=== PATIENT | female | born 1960 | race African-American/Black ===

== ENCOUNTER 2019-12-19 08:17 | Outpatient (CLI) | payer MEDICARE, MEDICAID, SELFPAY ==
--- NOTE | ~2019-12-19 | CT_ITS ---
EXAMINATION:CT lung screening DATE: 12/19/2019 08:47 INDICATION: Personal history of tobacco dependence. Current smoker with 33.75 pack year history. TECHNIQUE: Computed tomography (CT) of the chest was performed without intravenous contrast. Automate d exposure control and iterative reconstruction technique were employed. The dose-length product (DLP ) was 50.76 mGy-cm. COMPARISON: None. FINDINGS: There is mild atelectasis bilaterally. There is mild emphysema. Calcified bilateral pulmona ry nodules are consistent with old granulomatous disease. No pleural effusion. The heart size is norm al. No pericardial effusion. There is mild thoracic spondylosis. IMPRESSION: 1. Lung-RADS category 1: Negative. Continue annual screening with noncontrast low-dose chest CT in 12 months. Reviewed, dictated and finalized at location A. IMPRESSION: 1. Lung-RADS category 1: Negative. Continue annual screening with noncontrast l ow-dose chest CT in 12 months.
== END 2019-12-19 08:18 | disposition home or self-care (01) ==
PROVIDERS: Referring Provider Nurse Practitioner Gerontology
DX: R10.2 Pelvic and perineal pain (principal); Z87.891 Personal history of nicotine dependence
CPT/HCPCS: G0297

== ENCOUNTER 2020-05-10 09:26 | Outpatient (CLI) | payer MEDICARE, MEDICAID, SELFPAY | END 2020-05-10 09:27 | disposition home or self-care (01) | LOC: ANHAUDIO 09:28 | DX: H90.3 Sensorineural hearing loss, bilateral (principal) | CPT/HCPCS: 92557; 92567 ==

== ENCOUNTER 2020-05-20 16:34 | Emergency (ER) | payer OTHER, MEDICARE, MEDICAID, SELFPAY ==
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
[2020-05-20 16:34] VITALS: BP 167/74; PULSE 93; RESP 14; TEMP 36.9; O2SAT 99
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
[2020-05-20] MEDS: ACETAMINOPHEN 500 MG TABLET 1000 MG PO (17:05)
[2020-05-20 17:34] VITALS: BP 155/70; PULSE 70; RESP 14; O2SAT 99
== END 2020-05-20 17:35 | disposition home or self-care (01) ==
PROVIDERS: Emergency Provider Emergency Medicine
DX: S09.90XA Unspecified injury of head, initial encounter (principal); E11.9 Type 2 diabetes mellitus without complications; E11.40 Type 2 diabetes mellitus with diabetic neuropathy, unspecified; V43.52XA Car driver injured in collision with other type car in traffic accident, initial encounter
CPT/HCPCS: 70450; 99284; A9270

== ENCOUNTER 2020-05-24 11:48 | Outpatient (CLI) | payer OTHER, MEDICARE, MEDICAID, SELFPAY ==
--- NOTE | ~2020-05-24 | XR_ITS ---
XR shoulder LT min 2V 05/24/2020 12:12 Indication: Left shoulder pain Procedure: 5 views left shoulder Comparison: 03/13/2018 Findings: No fracture, subluxation or dislocation. No soft tissue abnormality. There is anatomic alig nment of the left shoulder. Visualized lung parenchyma is unremarkable. Impression: 1: No significant bone or joint abnormality. Reviewed, dictated and finalized at location B. Impression: 1: No significant bone or joint abnormality.
== END 2020-05-24 11:49 | disposition home or self-care (01) ==
PROVIDERS: Visit Provider Family Medicine
DX: M25.512 Pain in left shoulder (principal)
CPT/HCPCS: 73030

== ENCOUNTER 2020-07-20 14:30 | Outpatient (RCR) | payer OTHER, MEDICARE, MEDICAID, SELFPAY ==
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
--- NOTE | 2020-07-03 11:04 | PCPTNOTE ---
Patient called & cancelled scheduled appointment this date due to having a job interview around the time of her appointment.
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
== END 2020-07-24 09:07 | disposition home or self-care (01) ==
LOC: ANHPT 14:30
PROVIDERS: PCP Family Medicine; Visit Provider Family Medicine
DX: M25.512 Pain in left shoulder (principal)
CPT/HCPCS: 97014; 97110; 97140; 97162; G0283

== ENCOUNTER 2020-10-02 09:53 | Outpatient (RCR) | payer MEDICAID, SELFPAY | END 2020-10-02 23:59 | disposition home or self-care (01) | LOC: ANHAUDIO 09:53 | PROVIDERS: PCP Family Medicine; Visit Provider Family Medicine | DX: Z46.1 Encounter for fitting and adjustment of hearing aid (principal) | CPT/HCPCS: 99199 ==

== ENCOUNTER 2021-02-07 10:57 | Outpatient (CLI) | payer MEDICARE, MEDICAID, SELFPAY ==
--- NOTE | ~2021-02-07 | CT_ITS ---
EXAMINATION:CT lung screening DATE: 02/07/2021 11:21 INDICATION: Personal history of tobacco dependence. Current smoker with 34 pack year history. TECHNIQUE: Computed tomography (CT) of the chest was performed without intravenous contrast. Automate d exposure control and iterative reconstruction technique were employed. The dose-length product (DLP ) was 65.37 mGy-cm. COMPARISON: Chest CT 12/19/2019 FINDINGS: There is mild emphysema. There is mild dependent atelectasis bilaterally. Calcified pulmona ry nodules are consistent with old granulomatous disease. No pleural effusion. The heart size is norm al. No pericardial effusion. There is a 2.7 cm mass in left adrenal gland measuring low-attenuation w ithout change, consistent with an adenoma. There is mild thoracic spondylosis. IMPRESSION: 1. Lung-RADS category 1: Negative. Continue annual screening with noncontrast low-dose chest CT in 12 months. Reviewed, dictated and finalized at location A. FIGHTER TYPE ONE IMPRESSION: 1. Lung-RADS category 1: Negative. Continue annual screening with noncontrast l ow-dose chest CT in 12 months.
== END 2021-02-07 10:58 | disposition home or self-care (01) ==
PROVIDERS: PCP Family Medicine; Visit Provider Nurse Practitioner Gerontology
DX: Z12.2 Encounter for screening for malignant neoplasm of respiratory organs (principal); F17.210 Nicotine dependence, cigarettes, uncomplicated
CPT/HCPCS: 71271

== ENCOUNTER 2021-03-09 08:41 | Outpatient (CLI) | payer MEDICARE, MEDICAID, SELFPAY ==
[2021-03-09 09:39] LABS: Hemoglobin A1C 6.1 % (<5.7)
[2021-03-09 09:44] LABS: Alanine Aminotransferase 40 U/L (4-35); Albumin Level 4.7 g/dL (3.5-5.1); Alkaline Phosphatase 97 U/L (38-126); Anion Gap 9 mmol/L (8-16); Aspartate Amino Transferase 35 U/L (14-36); Bilirubin,Total 0.3 mg/dL (0.2-1.3); Blood Urea Nitrogen 21 mg/dL (7-17); Calcium 10.3 mg/dL (8.4-10.2); Carbon Dioxide 28 mmol/L (22-30); Chloride 103 mmol/L (98-107); Cholesterol 182 mg/dL (0-200); Estimated Glomerular Filt Rate > 60; Glucose 121 mg/dL (65-110); HDL Direct 66 mg/dL; Potassium 4.1 mmol/L (3.4-5.0); Sodium 140 mmol/L (137-145); Triglycerides 59 mg/dL (<150)
[2021-03-09 09:55] LABS: LDL Cholesterol Direct 94 mg/dL
[2021-03-09 11:45] LABS: Microalbumin Urine Random 16.4 mg/L (0-16.7)
[2021-03-09 11:53] LABS: Creatinine Urine 162.5 mg/dL; MALB Creatinine Ratio 10.1 mg/g (0-30)
[2021-03-13 23:24] LABS: Vitamin D 1,25 (OH)2 Total 29 pg/mL (18-72); Vitamin D2 1,25 (OH)2 <8 pg/mL; Vitamin D3 1,25 (OH)2 29 pg/mL
== END 2021-03-09 08:42 | disposition home or self-care (01) ==
PROVIDERS: PCP Emergency Medicine; Visit Provider Emergency Medicine
DX: E55.9 Vitamin D deficiency, unspecified (principal); E11.42 Type 2 diabetes mellitus with diabetic polyneuropathy; I10 Essential (primary) hypertension; Z13.220 Encounter for screening for lipoid disorders
CPT/HCPCS: 36415; 80053; 80061; 82043; 82652; 83036

== ENCOUNTER 2021-05-20 08:09 | Outpatient (CLI) | payer MEDICARE, MEDICAID, SELFPAY ==
--- NOTE | ~2021-05-20 | US_ITS ---
EXAMINATION: US art doppler w press LE BI DATE: 05/20/2021 09:31 INDICATION: Atherosclerosis of the [place] arteries of the extremities. Claudication. TECHNIQUE: Segmental pressures and plethysmographic and Doppler waveforms of the brachial and lower e xtremity arteries were obtained. COMPARISON: None. FINDINGS: Right and left brachial artery pressures of 145 mm Hg and 142 mm Hg, respectively, are 14 (normal dif ference <= 30 mmHg). The right and left high-thigh pressure indices are 1.07 and 1.08, respectively ( normal > 1.2). The right ankle-brachial index (JOYCE) is 1.06 (normal >= 0.9-1). The right great toe-brachial index (T BI) is 0.57 (normal >= 0.6-0.8). The right lower extremity segmental pressure gradients are normal (n ormal gradients <= 20-30 mmHg between adjacent levels on the same leg or the same levels on the two l egs). Arterial waveforms are biphasic with brisk systolic upstrokes throughout the arteries of the ri ght lower limb. The left JOYCE is 1.08. The left TBI is unable to be assessed due to no discernible dopplerable pulse a t the left great toe. The left lower extremity segmental pressure gradients are normal. Arterial wave forms are biphasic with brisk systolic upstrokes throughout the arteries of the left lower limb. IMPRESSION: 1. 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 2. Arterial occlusive disease to the right lower limb with normal right JOYCE and mildly decreased righ t TBI. Reviewed, dictated and finalized at location A. IMPRESSION: 1. Arterial occlusive disease in the left lower limb likely peripheral below th e level of the left ankle with normal left JOYCE but no dopplerable pulse in the left great toe. 2. Arterial occlusive disease to the right lower limb with normal right JOYCE and mildly decreased right TBI.
== END 2021-05-20 08:10 | disposition home or self-care (01) ==
PROVIDERS: PCP Emergency Medicine; Visit Provider Emergency Medicine
DX: I73.9 Peripheral vascular disease, unspecified (principal)
CPT/HCPCS: 93923

== ENCOUNTER 2021-06-18 16:51 | Outpatient (CLI) | payer MEDICARE, MEDICAID, SELFPAY ==
--- NOTE | ~2021-06-18 | US_ITS ---
EXAMINATION: US renal BI DATE: 06/18/2021 18:18 INDICATION: Urinary tract infection TECHNIQUE: Multiple grayscale and Doppler ultrasound images of the kidneys were obtained. COMPARISON: None. FINDINGS: The right kidney measures 8.5 x 4.4 x 3.7 cm. The left kidney measures 9.4 x 4.3 x 3.7 cm. The kidneys demonstrate normal parenchymal echogenicity. There is no hydronephrosis. The bladder is n ormal. IMPRESSION: 1. Normal kidneys without hydronephrosis. Reviewed, dictated and finalized at location F.
== END 2021-06-18 16:52 | disposition home or self-care (01) ==
PROVIDERS: PCP Emergency Medicine
DX: N39.0 Urinary tract infection, site not specified (principal)
CPT/HCPCS: 76775

== ENCOUNTER 2021-08-02 12:13 | Outpatient (CLI) | payer MEDICARE, MEDICAID, SELFPAY ==
--- NOTE | 2021-08-05 11:30 | WPDSIXMINUTE ---
Six Minute Walk Procedure Procedure Performed Pulmonary Stress Test (6 min walk) Six Minute Walk Six Minute Walk: This is a 6 minute walk test. The test was performed and interpreted in accordance with the 2014 ERS/ATS task force guidelines. Findings: The patient's resting room air oxygen saturation measured by pulse oximetry was 95% and heart rate was 100 bpm. Patient ambulated for 457 meters and oxygen saturation remained 94 to 97%. Heart rate at the end of the study was 113 bpm. The patient did not qualify for supplemental oxygen at rest or with ambulation. There are no prior studies for comparison.
--- NOTE | 2021-08-05 11:31 | WPDPFTINT ---
PFT Procedure Performed PFT Procedure Performed Spirometry with Pre/Post Bronchodilator Plethysmography (Lung Vol) Diffusing Cap (DLCO) Flow Vol Loop PFT Interpretation This is a pulmonary function test with pre and post-bronchodilator spirometry, plethysmography and diffusing capacity. The test was performed and results interpreted in accordance with the 2019 and 2005 ATS/ERS Task Force guidelines respectively using the Global Lung Function Initiative-2012 reference equations. Patient demonstrated good effort and cooperation. Reproducibility criteria were met. The quality of the pre bronchodilator spirometry maneuver was Grade C and post bronchodilator spirometry maneuver was Grade C. of note the patient had difficulty following directions and had fair effort Findings: Spirometry: the contour the inspiratory and expiratory flow tracing are normal. The pre bronchodilator FVC is 1.95 L, 76% predicted. The pre bronchodilator FEV1 is 1.92 L, 95% predicted. The pre bronchodilator FEV1: FVC ratio is 99%. The post bronchodilator FVC is 1.78 L, representing a 9% decrease. The post bronchodilator FEV1 is 1.75 L, representing a 9% decrease. The post bronchodilator FEV1: FVC ratio is 98%. Plethysmography: The total lung capacity is 3.87 L, 90% predicted. The functional residual capacity is 2.02 L, 77% predicted. The residual volume is 1.91 L, 104% predicted. Diffusion capacity: The diffusion capacity unadjusted for hemoglobin and carboxyhemoglobin is 11.7, 56% predicted. The diffusing capacity adjusted for alveolar volume is 4.28, 96% predicted. Impression: The spirometry is normal without evidence of an obstructive abnormality. There is no significant improvement after inhaling a single dose of albuterol. The lung volumes are normal. The diffusing capacity unadjusted for hemoglobin and carboxyhemoglobin is moderately decreased and normalizes when adjusted for alveolar volume. There are no prior studies for comparison
== END 2021-08-02 12:14 | disposition home or self-care (01) ==
LOC: ANHPFT 12:15
PROVIDERS: PCP Emergency Medicine; Visit Provider Nurse Practitioner Gerontology
DX: J40 Bronchitis, not specified as acute or chronic (principal)
CPT/HCPCS: 94060; 94618; 94726; 94729

== ENCOUNTER 2021-11-01 07:34 | Outpatient (CLI) | payer MEDICARE, MEDICAID, SELFPAY ==
[2021-11-01 08:28] LABS: Alanine Aminotransferase 29 U/L (6-35); Albumin Level 4.3 g/dL (3.5-5.1); Alkaline Phosphatase 77 U/L (38-126); Anion Gap 9 mmol/L (8-16); Aspartate Amino Transferase 29 U/L (14-36); Bilirubin,Total 0.3 mg/dL (0.2-1.3); Blood Urea Nitrogen 13 mg/dL (7-17); Calcium 9.4 mg/dL (8.4-10.2); Carbon Dioxide 28 mmol/L (22-30); Chloride 103 mmol/L (98-107); Cholesterol 161 mg/dL (0-200); Estimated Glomerular Filt Rate > 60; Glucose 104 mg/dL (65-110); HDL Direct 62 mg/dL; Potassium 3.9 mmol/L (3.4-5.0); Sodium 140 mmol/L (137-145); Triglycerides 55 mg/dL (<150)
[2021-11-01 08:39] LABS: LDL Cholesterol Direct 55 mg/dL
[2021-11-01 09:07] LABS: Hemoglobin A1C 6.2 % (<5.7)
[2021-11-01 09:25] LABS: MALB Creatinine Ratio 6.5 mg/g (0-30); Microalbumin Urine Random 13.9 mg/L (0-16.7)
== END 2021-11-01 07:35 | disposition home or self-care (01) ==
PROVIDERS: PCP Emergency Medicine; Visit Provider Emergency Medicine
DX: E11.9 Type 2 diabetes mellitus without complications (principal); I10 Essential (primary) hypertension
CPT/HCPCS: 36415; 80053; 80061; 82043; 83036

== ENCOUNTER 2021-11-12 12:31 | Outpatient (CLI) | payer MEDICARE, MEDICAID, SELFPAY ==
--- NOTE | ~2021-11-12 | MR_ITS ---
EXAMINATION: MR shoulder RT wo con DATE: 11/12/2021 13:47 INDICATION: Right shoulder pain. TECHNIQUE: Magnetic resonance imaging (MRI) of the right shoulder was performed without intravenous c ontrast. Sequences included axial PD-weighted FS FSE, coronal oblique PD-weighted FS FSE and T2-weigh donna FS FSE, and sagittal oblique T2-weighted FS FSE and T1-weighted FSE. COMPARISON: None. FINDINGS: Coracoacromial arch: The acromion undersurface is curved in morphology (type II). The acromioclavicular joint cartilage is normal. There is moderate subacromial/subdeltoid bursitis. Rotator cuff: There is a bursal sided partial-thickness tear of supraspinatus and infraspinatus tendons measuring 8 mm anterior to posterior by 3 mm proximal to distal by 60% tendon thickness. Teres minor tendon is n ormal. Subscapularis tendon is normal. There is no asymmetric fatty atrophy of the rotator cuff muscl e bellies. Biceps tendon and glenoid labrum: Biceps tendon is in bicipital groove. Intra-articular biceps tendon is normal. The glenoid labrum is normal. Fluid: There is no glenohumeral joint effusion. Bones/cartilage: Glenoid cartilage is normal. Humeral head cartilage is normal. IMPRESSION: 1. Bursal sided partial-thickness tear of supraspinatus and infraspinatus tendons. 2. Moderate subacromial/subdeltoid bursitis. Reviewed, dictated and finalized at location A. IMPRESSION: 1. Bursal sided partial-thickness tear of supraspinatus and infraspinatus tendo ns. 2. Moderate subacromial/subdeltoid bursitis.
--- NOTE | ~2021-11-12 | MR_ITS ---
EXAMINATION: MR shoulder LT wo con DATE: 11/12/2021 13:47 INDICATION: Left shoulder pain other specified acquired deformities of left upper arm. TECHNIQUE: Magnetic resonance imaging (MRI) of the left shoulder was performed without intravenous co ntrast. Sequences included axial PD-weighted FS FSE, coronal oblique PD-weighted FS FSE and T2-weight ed FS FSE, and sagittal oblique T2-weighted FS FSE and T1-weighted FSE. COMPARISON: Left shoulder radiographs 05/24/2020 FINDINGS: Coracoacromial arch: The acromion undersurface is curved in morphology (type II). There is mild acromioclavicular joint os teoarthritis. There is moderate subacromial/subdeltoid bursitis. Rotator cuff: There is a full-thickness tear of supraspinatus and anterior infraspinatus tendons measuring 7 mm ant erior to posterior by 10 mm proximal to distal at the bursal side of the tear and 25 mm proximal to d istal at the articular side of the tear. Teres minor tendon is normal. There is mild subscapularis te ndinopathy. There is mild fatty atrophy of infraspinatus muscle belly. Biceps tendon and glenoid labrum: Biceps tendon is in bicipital groove. Intra-articular biceps tendon is normal. The glenoid labrum is normal. Fluid: There is no glenohumeral joint effusion. Bones/cartilage: There is cartilage surface irregularity of glenoid and humeral head. IMPRESSION: 1. Full-thickness rotator cuff tear. 2. Mild glenohumeral joint chondrosis. 3. Moderate subacromial/subdeltoid bursitis. 4. Mild acromioclavicular joint osteoarthritis. Reviewed, dictated and finalized at location A.
== END 2021-11-12 12:32 | disposition home or self-care (01) ==
PROVIDERS: PCP Emergency Medicine; Visit Provider Emergency Medicine
DX: M21.821 Other specified acquired deformities of right upper arm (principal); M21.822 Other specified acquired deformities of left upper arm; M75.51 Bursitis of right shoulder; S46.811A Strain of other muscles, fascia and tendons at shoulder and upper arm level, right arm, initial encounter; X58.XXXA Exposure to other specified factors, initial encounter; M75.102 Unspecified rotator cuff tear or rupture of left shoulder, not specified as traumatic; M19.012 Primary osteoarthritis, left shoulder; M75.52 Bursitis of left shoulder
CPT/HCPCS: 73221

== ENCOUNTER 2022-06-02 13:57 | Outpatient (CLI) | payer MEDICARE, MEDICAID, SELFPAY ==
[2022-06-02 14:47] LABS: Alanine Aminotransferase 28 U/L (6-35); Albumin Level 4.7 g/dL (3.5-5.1); Alkaline Phosphatase 113 U/L (38-126); Anion Gap 9 mmol/L (8-16); Aspartate Amino Transferase 26 U/L (14-36); Bilirubin,Total 0.4 mg/dL (0.2-1.3); Blood Urea Nitrogen 13 mg/dL (7-17); Calcium 9.1 mg/dL (8.4-10.2); Carbon Dioxide 26 mmol/L (22-30); Chloride 104 mmol/L (98-107); Cholesterol 176 mg/dL (0-200); Estimated Glomerular Filt Rate > 60; Glucose 117 mg/dL (65-110); HDL Direct 66 mg/dL; Potassium 4.4 mmol/L (3.4-5.0); Sodium 139 mmol/L (137-145); Triglycerides 69 mg/dL (<150)
[2022-06-02 14:59] LABS: LDL Cholesterol Direct 78 mg/dL
[2022-06-02 15:18] LABS: Thyroid Stimulating Hormone 0.882 uIU/mL (0.465-4.680)
[2022-06-02 17:23] LABS: Creatinine Urine 38.1 mg/dL
[2022-06-02 17:24] LABS: Free T4 Free Thyroxine 1.14 ng/mL (0.78-2.19)
[2022-06-02 17:37] LABS: Hemoglobin A1C 6.9 % (<5.7)
[2022-06-02 18:23] LABS: MALB Creatinine Ratio < 15.7 mg/g (0-30); Microalbumin Urine Random < 6.0 mg/L (0-16.7)
[2022-06-06 06:08] LABS: Thyroid Peroxidase Antibodies 88 IU/mL (<9)
== END 2022-06-02 13:58 | disposition home or self-care (01) ==
PROVIDERS: PCP Emergency Medicine; Referring Provider Dermatology; Visit Provider Emergency Medicine
DX: E11.9 Type 2 diabetes mellitus without complications (principal); E78.5 Hyperlipidemia, unspecified; Z13.220 Encounter for screening for lipoid disorders; Z13.29 Encounter for screening for other suspected endocrine disorder
CPT/HCPCS: 36415; 80053; 80061; 82043; 83036; 84439; 84443; 86376

== ENCOUNTER 2022-06-09 08:28 | Outpatient (NON) | payer MEDICARE, MEDICAID, SELFPAY | END 2022-06-09 08:29 | disposition home or self-care (01) | LOC: ANHLAB 06-10 08:29 | PROVIDERS: PCP Emergency Medicine; Visit Provider Internal Medicine Gastroenterology | DX: Z12.11 Encounter for screening for malignant neoplasm of colon (principal) | CPT/HCPCS: 88305 ==

== ENCOUNTER 2022-06-09 11:16 | Day surgery (SDC) | payer MEDICARE, MEDICAID, SELFPAY ==
[2022-05-08 14:45] VITALS: BMI 24.5
[2022-05-28 10:47] VITALS: BMI 23.4
--- NOTE | 2022-05-28 11:00 | PC.NURSE ---
1100; CALLED AND LEFT MESSAGE AT DR ANDRE OFFICE REGARDING PT TAKING CILOSTAZOL.
--- NOTE | 2022-05-29 09:15 | SUR.PREOP ---
LATE NOTE. 0527; FAXED LETTER TO DR LINCOLN OFFICE REGARDING HOLDING CILOSTAZOL 2 DAYS PRIOR TO ENDOSCOPY'S. PER DR ANDRE
--- NOTE | 2022-06-04 08:27 | SUR.PREOP ---
CALLED PT. INSTRUCTED HER TO STOP CILOSTAZOL 2 DAYS PRIOR TO PROCEDURE, PER DR ANDRE. PT VERBALIZED UNDERSTANDING.
[2022-06-09 11:58] LABS: Glucose Point of Care 121 mg/dl (65-105)
--- NOTE | 2022-06-09 11:59 | WPDANESEPPF ---
Anes - Initial Pre Proc Eval Procedure: Operation Date: 06/09/22 13:00 Proposed Procedures p Esophagogastroduodenoscopy - Morris Khan MD s Diagnostic Colonoscopy - Morris Khan MD Date/Time: 06/09/22 11:59 Surgeon: Morris Khan MD Pre Op Diagnosis: Heart Burn, Change in Stool and Bloating Patient Data Age: 61 Gender: F Height: 1.6 m Weight: 58.5 kg Allergies Allergy/AdvReac Type Severity Reaction Status Date / Time Sulfa (Sulfonamide Allergy Intermediate Swelling Verified 06/09/22 11:43 Antibiotics) Home Medications Medication Instructions Recorded Confirmed Type folic acid-vit B6-vit B12 2.2 1 tablet PO QAM 03/05/21 06/09/22 History mg-25 mg-1 mg tablet (Virt-Zoey) mirabegron 50 mg tablet,extended 50 mg PO QAM 03/05/21 06/09/22 History release 24 hr (Myrbetriq) metformin 1,000 mg tablet 1,000 mg PO BID #180 tabs 07/10/21 06/09/22 Rx bupropion HCl 75 mg tablet 75 mg PO DAILY #90 tabs 12/02/21 06/09/22 Rx gabapentin 300 mg capsule 300 mg PO QHS #90 caps 12/02/21 06/09/22 Rx estradiol 0.01% (0.1 mg/gram) See Rx Instructions .Route 04/09/22 06/09/22 Rx vaginal cream .COMPLEX #42.5 grams tramadol 50 mg tablet 50 mg PO Q6H PRN pain #30 tabs 04/09/22 06/09/22 Rx cyclobenzaprine 5 mg tablet See Rx Instructions .Route 04/17/22 06/09/22 Rx .COMPLEX #90 tabs cilostazol 50 mg tablet See Rx Instructions .Route 04/22/22 06/09/22 Rx .COMPLEX #180 tabs losartan 50 mg-hydrochlorothiazide See Rx Instructions .Route 05/20/22 06/09/22 Rx 12.5 mg tablet .COMPLEX #90 tabs Laboratory Tests 06/09/22 11:55 POC Capillary Glucose 121 mg/dl H mg/dl (65-105) Patient hx anesthesia problems: none Family hx anesthesia problems: none Results Review: All pre-operative results and documents have been reviewed as part of the pre-operative evaluation. [facility] Past Medical History Medical History Diabetes mellitus Neuropathy Tubal (~1978) Vitiligo Surgical History Surgical History History of tubal ligation (~1991) Hx of removal of ovary (~1991) Family History Family History Father , 72 Heart problem Recurrent strokes Hypertension Mother , 62 History of kidney removal Lung abnormality Other Asthma Diabetes mellitus Heart disease Neuropathy Social History Social History Social History: Patient drinks caffeine daily. Smoking packs per day: 0.5 Smoking cigarettes per day: 10.0 Years smoked: 30 Smoking pack-years: 15.00 Smoking status: Former smoker Tobacco type: cigarettes Second hand tobacco smoke exposure: Yes Alcohol intake: current Drinks per week: 1 Alcohol use details: Drinks only at social events - about 2 per month Substance use: never Substance use type: does not use Living arrangements: alone Additional living arrangements comments: Patient is single. 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 Informed Consent: The patient's anesthetic plan and its attendant risks and benefits were discus
[2022-06-09] MEDS: LACTATED RINGERS 1,000 ML 150 ML IV CONT (12:04)
[2022-06-09 12:05] VITALS: BP 125/80; PULSE 110; RESP 20; TEMP 36.3; O2SAT 100
--- NOTE | 2022-06-09 12:19 | PM.HPGS ---
History of Present Illness History of Present Illness Consent: Risks, benefits, and alternatives have been discussed and questions answered. Patient agrees to proceed with procedure. Chief complaint: Heart Burn, Change in Stool and Bloating Narrative: Adelaida Dunbar is a 61 year old female with gerd for years on ppi, also bloating. Last colonoscopy 10 years ago. Review of Systems Constitutional: Constitutional: Denies headache(s) and Denies weakness Eyes: Eyes: Denies blurry vision ENT: Reports Normal hearing present, Denies headache(s) and Denies neck pain Cardiovascular: Cardiovascular: Denies chest pain and Denies dyspnea Respiratory: Respiratory: Denies dyspnea Gastrointestinal: Gastrointestinal: Reports no additional gastrointestinal complaints Genitourinary: Genitourinary: Denies dysuria Musculoskeletal: Musculoskeletal: Denies neck pain Integumentary/Breasts: Skin/Breast: Denies dry skin Neurologic: Reports Normal hearing present, Denies headache(s) and Denies weakness Psychiatric: Psychiatric: Denies anxiety Endocrine: Endocrine: Denies change in body appearance Hematologic/Lymphatic: Hematologic/Lymphatic: Denies easy bleeding Allergic/Immunologic: Allergic/Immunologic: Denies urticaria PMFSH Past Medical History Medical History (Updated 06/09/22 @ 12:20 by Morris Khan MD) Diabetes mellitus GERD (gastroesophageal reflux disease) Neuropathy Tubal (~1978) Vitiligo Surgical History Surgical History History of tubal ligation (~1991) Hx of removal of ovary (~1991) Family History Family History Father , 72 Heart problem Recurrent strokes Hypertension Mother , 62 History of kidney removal Lung abnormality Other Asthma Diabetes mellitus Heart disease Neuropathy Social History Social History Social History: Patient drinks caffeine daily. Smoking packs per day: 0.5 Smoking cigarettes per day: 10.0 Years smoked: 30 Smoking pack-years: 15.00 Smoking status: Former smoker Tobacco type: cigarettes Second hand tobacco smoke exposure: Yes Alcohol intake: current Drinks per week: 1 Alcohol use details: Drinks only at social events - about 2 per month Substance use: never Substance use type: does not use Living arrangements: alone Additional living arrangements comments: Patient is single. 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[employer] Gender identity (if verbalized by the patient): Female Spiritual care concerns: No Meds Home Medications and Allergies Home Medications Medication Instructions Recorded Confirmed Type folic acid-vit B6-vit B12 2.2 1 tablet PO QAM 03/05/21 06/09/22 History mg-25 mg-1 mg tablet (Virt-Zoey) mirabegron 50 mg tablet,extended 50 mg PO QAM 03/05/21 06/09/22 History release 24 hr (Myrbetriq) metformin 1,000 mg tablet 1,000 mg PO BID #180 tabs 07/10/21 06/09/22 Rx bupropion HCl 75 mg tablet 75 mg PO DAILY #90 tabs 12/02/21 06/09/22 Rx gabapentin 300 mg capsule 300 mg PO QHS #90 caps 12/02/21 06/09/22 Rx estradiol 0.01% (0.1 mg/gram) See Rx Instructions .Route 04/09/22 06/09/22 Rx vaginal cream .COMPLEX #42.5 grams tramadol 50 mg tablet 50 mg PO Q6H PRN pain #30 tabs 04/09/22 06/09/22 Rx cyclobenzaprine 5 mg tablet See Rx Instructions .Route 04/17/22 06/09/22 Rx .COMPLEX #90 tabs cilostazol 50 mg tablet See Rx Instructions .Route 04/22/22 06/09/22 Rx .COMPLEX #180 tabs losartan 50 mg-hydrochlorothiazide See Rx Instructions .Route 05/20/22 06/09/22 Rx 12.5 mg tablet .COMPLEX #90 tabs Allergies Allergy/AdvReac Type Severity Reaction Status Date / Time Sulfa (Sulfonamide Allergy Intermediate Swelling Verified 06/09
[2022-06-09 12:37] VITALS: BP 107/67; PULSE 96; RESP 16; O2SAT 98
--- NOTE | 2022-06-09 12:46 | WPDANESPN ---
Anes - Prog Note Post-Op Date/Time: 06/09/22 12:46 Cardiovascular status: normal Respiratory status: normal Airway patency: baseline Mental status: baseline Post-Op hydration status: normal Vital Signs: Last Vital Signs Temp 36.3 C L 06/09/22 12:05 Pulse 110 H 06/09/22 12:05 Resp 20 06/09/22 12:05 BP 125/80 06/09/22 12:05 Pulse Ox 100 06/09/22 12:05 O2 Del Method Room Air 06/09/22 12:05 Pain Score (VAS): 0/10 06/09/22 11:55 POC Capillary Glucose 121 H Patient Feedback: Patient satisfied with anesthetic care.
[2022-06-09 12:54] VITALS: BP 101/70; PULSE 93; RESP 18; O2SAT 100
[2022-06-09 12:57] VITALS: BP 127/78; PULSE 91; RESP 18; O2SAT 99
== END 2022-06-09 13:28 | disposition home or self-care (01) ==
PROVIDERS: PCP Emergency Medicine; Visit Provider Internal Medicine Gastroenterology
PROC: 0DJ08ZZ Inspection of Upper Intestinal Tract, Via Natural or Artificial Opening Endoscopic (ICD-10-PCS; CPT 43235; principal; 2022-06-09 13:00)
PROC: 0DJD8ZZ Inspection of Lower Intestinal Tract, Via Natural or Artificial Opening Endoscopic (ICD-10-PCS; CPT 45378; 2022-06-09 13:00)
DX: Z12.11 Encounter for screening for malignant neoplasm of colon (principal)
CPT/HCPCS: 45378; 43239

== ENCOUNTER 2022-07-14 12:08 | Outpatient (CLI) | payer MEDICARE, MEDICAID, SELFPAY ==
--- NOTE | 2022-07-14 12:16 | ECG_ITS ---
Measurements Intervals [place] Rate: 107 P: OR: 0 QRS: 43 QRSD: 67 T: 79 QT: 319 QTc: 427 Interpretive Statements SINUS TACHYCARDIA ATRIAL PREMATURE COMPLEXES NONSPECIFIC ST & T-WAVE ABNORMALITY- HIGH LATERAL LEADS BASELINE ARTIFACT- I, III, AVL ABNORMAL ECG NO PREVIOUS ECG AVAILABLE FOR COMPARISON Electronically Signed On 07-14-2022 12:43:32 CDT by Refugio Chowdhury D.O.
== END 2022-07-14 12:09 | disposition home or self-care (01) ==
LOC: ANHCARD 12:11
PROVIDERS: PCP Emergency Medicine; Visit Provider Anesthesiology
DX: I10 Essential (primary) hypertension (principal); Z01.818 Encounter for other preprocedural examination
CPT/HCPCS: 93005

== ENCOUNTER 2022-07-18 01:50 | Day surgery (SDC) | payer MEDICARE, MEDICAID, SELFPAY ==
[2022-07-11 15:31] VITALS: BMI 23.0
--- NOTE | 2022-07-11 15:56 | PC.NURSE ---
Report to the Outpatient Waiting Room, entrance under the green pavilion located off [facility], at time 0600 on date 07/11_. Planned Procedure Time: . Time changes happen often and if your time is changed the preop area will call you the afternoon before. - You and your visitor will be asked to self-screen and do not enter if you have any COVID symptoms. - A mask is optional within the hospital at this time. Patients may have clear liquids (water, carbonated beverages, clear teas, apple juice) until 3 hours prior to surgery with a maximum of 20 ounces. - No food from midnight until time of surgery - Infants may have breast milk until 4 hours before surgery, infant formula 6 hours prior to surgery. - Children will be allowed to drink immediately following surgery. If applicable, please bring a bottle or sippy cup to assist with drinking. Juice, water, soda, and popsicles are readily available. For infants on formula, please bring formula the day of surgery. Pacifiers are allowed. Take the following medications with a SIP of water the morning of surgery: DO NOT STOP ANY OF YOUR OTHER PRESCRIPTION MEDICATIONS PRIOR TO SURGERY ?EXCEPT THE FOLLOWING Medications to discontinue per physician Date to take last dose Please no make-up, nail uzbek, hairspray, perfume, deodorant, or body powder the day of surgery. No jewelry (including any body piercings) or valuables the day of surgery, leave them at home. Please take a shower or bath the night before, or the morning of, surgery with an antibacterial soap. Wear comfortable, loose fitting clothing. Children are encouraged to wear pajamas. - Jewelry must be removed prior to entering the operating room. Rings and piercings that are not removed may be cut off. - The hospital will not accept responsibility for valuables. - Please leave all valuables, including medications, at home the day of surgery. If you are going home after surgery, a licensed electric pile driver operator must drive you home. - NO public transportation without another adult if you receive anesthesia. - We recommend that an adult stay with you for 24 hours following discharge. - We also recommend that you do not drive, make important decision, drink alcoholic beverages, or take any drugs that were not prescribed by your health care provider for at least 24 hours after your discharge time. For Pediatric surgeries, we recommend two adults accompany the child home. Follow any additional instructions given to you from your surgeon. If you or anyone in your household have experienced Covid symptoms in the past week, please notify your surgeon or the nurse liaison at the phone number below for possible testing. Telephone instructions given to and asked if any additional questions and then verbalized understanding. Patient advised to call surgeon office or pre surgery nurse liaison [phone] if any additional questions.
--- NOTE | 2022-07-11 15:57 | PC.NURSE ---
Report to the Outpatient Waiting Room, entrance under the green pavilion located off [facility], at time _0600 on date 07/18/22_. Planned Procedure Time: _0730. Time changes happen often and if your time is changed the preop area will call you the afternoon before. - You and your visitor will be asked to self-screen and do not enter if you have any COVID symptoms. - A mask is optional within the hospital at this time. Patients may have clear liquids (water, carbonated beverages, clear teas, apple juice) until 3 hours prior to surgery with a maximum of 20 ounces. - No food from midnight until time of surgery - Infants may have breast milk until 4 hours before surgery, formula 6 hours prior to surgery. - Children will be allowed to drink immediately following surgery. If applicable, please bring a bottle or sippy cup to assist with drinking. Juice, water, soda, and popsicles are readily available. For infants on formula, please bring formula the day of surgery. Pacifiers are allowed. Take the following medications with a SIP of water the morning of surgery: _n/a___ DO NOT STOP ANY OF YOUR OTHER PRESCRIPTION MEDICATIONS PRIOR TO SURGERY ?EXCEPT THE FOLLOWING Medications to discontinue per physician _vitamins/supplements Date to take last dose__07/15/22__ Please no make-up, nail thai, hairspray, perfume, deodorant, or body powder the day of surgery. No jewelry (including any body piercings) or valuables the day of surgery, leave them at home. Please take a shower or bath the night before, or the morning of, surgery with an antibacterial soap. Wear comfortable, loose fitting clothing. Children are encouraged to wear pajamas. - Jewelry must be removed prior to entering the operating room. Rings and piercings that are not removed may be cut off. - The hospital will not accept responsibility for valuables. - Please leave all valuables, including medications, at home the day of surgery. If you are going home after surgery, a licensed emt driver must drive you home. - NO public transportation without another adult if you receive anesthesia. - We recommend that an adult stay with you for 24 hours following discharge. - We also recommend that you do not drive, make important decision, drink alcoholic beverages, or take any drugs that were not prescribed by your health care provider for at least 24 hours after your discharge time. For Pediatric surgeries, we recommend two adults accompany the child home. Follow any additional instructions given to you from your surgeon. If you or anyone in your household have experienced Covid symptoms in the past week, please notify your surgeon or the nurse liaison at the phone number below for possible testing. Telephone instructions given to Samy Dunbar and asked if any additional questions and then verbalized understanding. Patient advised to call surgeon office or pre surgery nurse liaison [phone] if any additional questions.
--- NOTE | 2022-07-17 16:39 | WPDANESEPPF ---
Anes - Initial Pre Proc Eval Procedure: Operation Date: 07/18/22 07:30 Proposed Procedures p Left Rotator Cuff Repair - Eugene Brower MD Date/Time: 07/17/22 16:39 Surgeon: Eugene Brower MD Pre Op Diagnosis: left rotator cuff tear Patient Data Age: 61 Gender: F Height: 1.6 m Weight: 59 kg Allergies Allergy/AdvReac Type Severity Reaction Status Date / Time Sulfa (Sulfonamide Allergy Intermediate Swelling Verified 07/14/22 13:51 Antibiotics) Home Medications Medication Instructions Recorded Confirmed Type folic acid-vit B6-vit B12 2.2 1 tablet PO QAM 03/05/21 07/11/22 History mg-25 mg-1 mg tablet (Virt-Zoey) gabapentin 300 mg capsule 300 mg PO QHS #90 caps 12/02/21 07/11/22 Rx estradiol 0.01% (0.1 mg/gram) See Rx Instructions .Route 04/09/22 07/11/22 Rx vaginal cream .COMPLEX #42.5 grams tramadol 50 mg tablet 50 mg PO Q6H PRN pain #30 tabs 04/09/22 07/11/22 Rx cyclobenzaprine 5 mg tablet See Rx Instructions .Route 04/17/22 07/11/22 Rx .COMPLEX #90 tabs cilostazol 50 mg tablet See Rx Instructions .Route 04/22/22 07/11/22 Rx .COMPLEX #180 tabs losartan 50 mg-hydrochlorothiazide See Rx Instructions .Route 05/20/22 07/11/22 Rx 12.5 mg tablet .COMPLEX #90 tabs metformin 1,000 mg tablet See Rx Instructions .Route 06/20/22 07/11/22 Rx .COMPLEX #180 tabs bupropion HCl 75 mg tablet See Rx Instructions .Route 06/23/22 07/11/22 Rx .COMPLEX #90 tabs chlorhexidine gluconate 4 % 1 applic topical DAILY #237 mL 07/01/22 07/11/22 Rx topical liquid (Hibiclens) clindamycin phosphate 1 % topical 1 applic topical DAILY #75 mL 07/01/22 07/11/22 Rx gel, once daily (Clindagel) solifenacin 5 mg tablet 5 mg PO DAILY 07/11/22 07/11/22 History Patient hx anesthesia problems: none Family hx anesthesia problems: none Results Review: All pre-operative results and documents have been reviewed as part of the pre-operative evaluation. [facility]LY [facility] Past Medical History Medical History (Updated 07/17/22 @ 17:19 by Josesito Bruce MD) Arthritis COPD (chronic obstructive pulmonary disease) Diabetes Diabetes mellitus Dysphagia Essential (primary) hypertension GERD (gastroesophageal reflux disease) Neuropathy Peripheral vascular disease Tubal (~1978) Vitiligo Vitiligo Surgical History Surgical History History of tubal ligation (~1991) Hx of removal of ovary (~1991) Family History Family History Father , 72 Heart problem Recurrent strokes Hypertension Mother , 62 History of kidney removal Lung abnormality Other Asthma Diabetes mellitus Heart disease Neuropathy Social History Social History Social History: Patient drinks caffeine daily. Smoking packs per day: 0.5 Smoking cigarettes per day: 10.0 Years smoked: 48 Smoking pack-years: 24.00 Smoking status: Former smoker Tobacco type: cigarettes Second hand tobacco smoke exposure: Yes Alcohol intake: never Drinks per week: 1 Alcohol use details: Drinks only at social events - about 2 per month Substance use: never Substance use type: does not use Living arrangements: with family Additional living arrangements comments: Patient is single. 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
--- NOTE | 2022-07-17 17:20 | WPDANESPNB ---
Anes - Peripheral Nerve Block Date/Time: 07/17/22 17:20 I have discussed with the patient/family/POA the placement of a peripheral nerve block for post-operative pain management, including associated risks, benefits, complications, and side effects. Alternative methods of post-operative analgesia were detailed. Questions were solicited and answers provided to the satisfaction of the patient/family/POA. Time-Out: A pre-procedural Time-Out was completed immediately before starting the procedure and confirmed: Patient Identification, Site, Procedure, Patient Position and the Availability of Requisite Equipment. Clinical Indications: Acute post-operative pain management requested by the operative surgeon. Nerve Block Insertion Note Anes-nerve block: supraclavicular left Patient position: supine Skin prep: chlorhexidine Needle: 22 gauge, stimulating, insulated echogenic needle. Needle length: 80 mm Technique: ultrasound (in plane) Injectate: bupivacaine 0.25% with epi 5 mcg/ml (20cc) Observations: tolerated well Complications: none Procedure start time:: 725 Procedure end time:: 730
[2022-07-18] VITALS (9 sets, daily range): BP systolic 117–145; BP diastolic 68–83; PULSE 88–99; RESP 14–18; TEMP 36.2–36.6; O2SAT 92–100
[2022-07-18] MEDS: ACETAMINOPHEN 500 MG TABLET 1000 MG PO (06:19)
[2022-07-18] MEDS: CELECOXIB 200 MG CAPSULE PO (06:19)
[2022-07-18 06:42] LABS: Glucose Point of Care 102 mg/dl (65-105)
[2022-07-18] MEDS: LACTATED RINGERS 1,000 ML 30 ML IV CONT (06:45)
--- NOTE | 2022-07-18 07:21 | WPDHPUPDATE1 ---
History and Physical Update Update Date/Time: 07/18/22 07:21 History and Physical has been reviewed, including an updated exam of the patient. There are NO changes in the patient's condition. Risks, benefits, and alternatives have been discussed and questions answered. Patient agrees to proceed with procedure.
[2022-07-18] MEDS: ceFAZolin 2 GM/D5W 50 ML 2 GM/50 ML BAG IVPB (07:45)
--- NOTE | 2022-07-18 09:55 | W.PM.PROC2 ---
Procedure Note - Detailed Date of Procedure 07/18/22 Pre-op Diagnosis left rotator cuff tear Post-op Diagnosis Same Procedure Performed REPAIR LEFT ROTATOR CUFF Surgeon Eugene Brower MD Anesthesia General Description of Procedure THE PATIENT WAS TAKEN TO THE OPERATING ROOM AND THEN INTUBATED AND PLACED IN THE BEACH CHAIR POSITION. THE LEFT UPPER EXTREMITY WAS PREPPED AND DRAPED IN THE NORMAL STERILE FASHION. AN INCISION WAS MADE IN BETWEEN THE FELIX-LATERAL ACROMION AND THE AC JOINT. THE FASCIA WAS IDENTIFIED. NEXT A MINI OPEN INCISION WAS MADE THROUGH THE DELTOID MUSCLE EXPOSING THE SUBACROMIAL SPACE. A LIMITED ACROMIOPLASTY WAS PREFORMED. THE ROTATOR CUFF WAS IDENTIFIED. THERE WAS A FULL THICKNESS TEAR. IT MEASURED APPROXIMATELY 3 CM X 2 CM. THE BICEPS TENDON WAS RETRACTED AND WAS STABLE AND INTACT. THE GREATER TUBEROSITY WAS DEBRIDED TO BLEEDING BONE. 4 ARTHREX 5.5 SUTURE ANCHORS WERE PLACED IN TO GOOD BONE AND HAD VERY GOOD BITES. CHANELLE-ÁLVARO TYPE REPAIRS WERE DONE TO THE ROTATOR CUFF AND THERE WAS GOOD APPROXIMATION TO THE GREATER TUBEROSITY. THE REPAIR WAS EXCELLENT. THERE WAS NO IMPINGEMENT ON THE REPAIR FROM THE ACROMION WITH RANGE OF MOTION. THE WOUND WAS IRRIGATED WITH COPIOUS AMOUNTS OF ANTIBIOTIC SOLUTION. THE DELTOID MUSCLE WAS REPAIRED WITH #2 FIBER WIRE AND 0 VICRYL SUTURE. THE SUBCUTANEOUS LAYER WAS APPROXIMATED WITH 2-0 VICRYL. THE SKIN WAS APPROXIMATED WITH 3-0 QUIL AND DERMABOND. STERILE DRESSING WAS APPLIED. PATIENT WAS EXTUBATED. Estimated Blood Loss 20 Complications No immediate complications Condition Stable Disposition PACU
[2022-07-18] MEDS: fentaNYL CITRATE INJ (*CRX) 100 MCG/2 ML VIAL 25 MCG IV PUSH (10:22)
[2022-07-18 10:44] LABS: Glucose Point of Care 158 mg/dl (65-105)
[2022-07-18] MEDS: oxyCODONE HCL (*CRX) 5 MG TAB IR PO (11:09)
== END 2022-07-18 12:30 | disposition home or self-care (01) ==
PROVIDERS: PCP Emergency Medicine; Visit Provider Orthopaedic Surgery
PROC: (CPT 23420; principal; 2022-07-18 07:30)
DX: S46.012A Strain of muscle(s) and tendon(s) of the rotator cuff of left shoulder, initial encounter (principal); X50.0XXA Overexertion from strenuous movement or load, initial encounter; G89.18 Other acute postprocedural pain; J44.9 Chronic obstructive pulmonary disease, unspecified; E11.40 Type 2 diabetes mellitus with diabetic neuropathy, unspecified; I10 Essential (primary) hypertension; K21.9 Gastro-esophageal reflux disease without esophagitis; E11.51 Type 2 diabetes mellitus with diabetic peripheral angiopathy without gangrene; Z79.84 Long term (current) use of oral hypoglycemic drugs; Z87.891 Personal history of nicotine dependence
CPT/HCPCS: 23410; 64415; 82948; 93005; A9270; C1713; J0690; J1100; J2250; J2405; J2704; J3010; J7120

== ENCOUNTER 2022-08-15 08:14 | Outpatient (CLI) | payer MEDICARE, MEDICAID, SELFPAY ==
--- NOTE | ~2022-08-15 | CT_ITS ---
CT Scan of the Chest without Contrast: Clinical Indication: Lung cancer screening, personal history of nicotine dependence Technique: Contiguous sections were acquired throughout the chest without intravenous contrast. Dose reduction technique was used on this scan by utilizing automated exposure control and iterative recon struction technique. The dose-length product (DLP) was 102.60 mGy-cm. COMPARISON: 02/07/2021, 12/19/2019 Findings: There is no evidence of any significant mediastinal, hilar or axillary lymphadenopathy. The mediastin al soft tissues appear normal. There is no evidence of pleural or pericardial effusion. Small calcified granulomas are noted. There is linear scarring or atelectasis at the right lower lobe Images through the upper abdomen reveal stable 2.7 cm adrenal adenoma. Impression: Lung RADS 2: Benign appearance. 12 month follow-up screening CT advised. Reviewed, dictated and finalized at [facility]. Impression: Lung RADS 2: Benign appearance. 12 month follow-up screening CT advised.
[2022-08-15 11:54] LABS: Free T4 Free Thyroxine 1.31 ng/mL (0.78-2.19)
[2022-08-19 13:55] LABS: Thyroid Stimulating Immunoglob <89 % baseline (<140); Thyrotropin Receptor Antibody <1.00 IU/L (<=2.00)
[2022-08-19 21:15] LABS: Glutamic acid decarboxylase AA <5 IU/mL (<5)
== END 2022-08-15 08:15 | disposition home or self-care (01) ==
PROVIDERS: PCP Emergency Medicine; Referring Provider Internal Medicine; Visit Provider Nurse Practitioner Gerontology
DX: E11.9 Type 2 diabetes mellitus without complications (principal); Z12.2 Encounter for screening for malignant neoplasm of respiratory organs; Z87.891 Personal history of nicotine dependence; R76.8 Other specified abnormal immunological findings in serum
CPT/HCPCS: 36415; 71271; 83519; 84439; 84443; 84445; 84681; 86341

== ENCOUNTER 2022-09-25 11:04 | Outpatient (CLI) | payer MEDICARE, MEDICAID, SELFPAY ==
--- NOTE | ~2022-09-25 | US_ITS ---
EXAMINATION: US thyroid DATE: 09/25/2022 11:24 INDICATION: Thyroid nodule. TECHNIQUE: Multiple ultrasound images of the thyroid were obtained. COMPARISON: None. FINDINGS: The right thyroid lobe measures 4.6 x 1.3 x 2.3 cm. The left thyroid lobe measures 4.4 x 2.0 x 1.5 c m. In the right thyroid lobe, there is a 10 mm solid, isoechoic, wider than tall nodule with ill-def ined margin and punctate echogenic foci (TI-RADS TR4). IMPRESSION: 1. Small thyroid nodule. Thyroid ultrasound is recommended in one year. Reviewed, dictated and finalized at location L.
== END 2022-09-25 11:05 | disposition home or self-care (01) ==
LOC: ANHIMG 11:05
PROVIDERS: PCP Emergency Medicine; Visit Provider Internal Medicine
DX: E04.1 Nontoxic single thyroid nodule (principal); R76.8 Other specified abnormal immunological findings in serum
CPT/HCPCS: 76536

== ENCOUNTER 2022-10-08 17:15 | Outpatient (RCR) | payer MEDICARE, MEDICAID, SELFPAY ==
--- NOTE | 2022-08-14 09:34 | OPREHPOC ---
Outpatient Therapy Plan of Care This is a Multidisciplinary Plan of Care that may contain components documented by all disciplines (PT, OT, and ST.) PT Problem 1 PT Problem #1 Knowledge Deficit PT Goal 1 Goal Patient will demonstrate independence with home exercise program PT Problem 2 PT Problem #2 Impaired Range of Motion PT Goal 1 Goal 1. Patient will demonstrate passive L shoulder flexion 110 2. Patient will demonstrate passive L shoulder scaption 110 3. Patient will demonstrate passive L shoulder external rotation 30 PT Problem 3 PT Problem #3 Impaired Strength PT Goal 1 Goal 1. Patient will demonstrate L shoulder strength 4+ /5 in all planes as allowed by protocol PT Problem 4 PT Problem #4 Pain PT Goal 1 Goal 1. Patient will report L shoulder pain as 3/10
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
--- NOTE | 2022-09-11 09:30 | PTOPPROG ---
Assessment and note entered by Lori Maurice, PT Evaluation Information Assessment Status Progress Diagnosis L RTC repair Onset July 18, 2022 Subjective Information Patient reports she feels like she is healing well . Patient is now able to progress with AROM and L shoulder strengthening. Patient goal is to strengthen L shoulder and decrease pain Assessment PT Clinical Summary Progress update completed on this date. Patient presents with decreased L shoulder AROM/PROM, decreased L shoulder and scapular muscle strength, postural impairments, and pain rated 5/10 with movement on this date. Impairments in ROM/strength /posture limit patient ability to return to daily activities. Recommending continued skilled PT 2x/ wk for 4 weeks to improve L shoulder mobility/ strength in order to decrease pain and return to PLOF. Plan of Care Interventions Electrical Stimulation,Gait Training,Hot Pack/Cold Pack,Neuro Re-education,Patient/Caregiver Education ,Therapeutic Activities,Therapeutic Exercise Other Interventions CUPPING, TAPING, IASTM PT Services Indicated Yes Treatment Frequency and 2x/wk for 4 weeks Duration These treatments will address the objective and functional deficits as defined above. The patient will be advanced safely and appropriately in order for the patient to progress towards his/her prior level of function. Additional exercises will be introduced and as well as a comprehensive home exercise program upon discharge, if needed, ?to ensure carryover of functional gains achieved in the clinic. This treatment plan has been reviewed and agreement upon by the patient.
--- NOTE | 2022-09-11 09:30 | OPREHPOC ---
Outpatient Therapy Plan of Care This is a Multidisciplinary Plan of Care that may contain components documented by all disciplines (PT, OT, and ST.) PT Problem 1 PT Problem #1 Knowledge Deficit PT Goal 1 Goal Patient will demonstrate independence with home exercise program - partially met goal continues PT Problem 2 PT Problem #2 Impaired Range of Motion PT Goal 1 Goal 1. Patient will demonstrate passive L shoulder flexion 110- met 2. Patient will demonstrate passive L shoulder scpation 110- met 3. Patient will demonstrate passive L shoulder external rotation 30- met UPGRADED GOALS: 1. patient will demonstrate L shoulder active flexion 130 degrees 2. Patient will demonstrate L shoulder IR/ER WNL PT Problem 3 PT Problem #3 Impaired Strength PT Goal 1 Goal 1. Patient will demonstrate L shoulder strength 4+ /5 in all planes- not met PT Problem 4 PT Problem #4 Pain PT Goal 1 Goal 1. Patient will report L shoulder pain as 3/10
--- NOTE | 2022-09-29 08:12 | PCPTNOTE ---
Pt. canceled 09/29/22 appointment but did not state why.
== END 2022-11-12 23:59 | disposition home or self-care (01) ==
LOC: ANHPT 17:15
PROVIDERS: PCP Emergency Medicine; Visit Provider Orthopaedic Surgery
DX: M75.102 Unspecified rotator cuff tear or rupture of left shoulder, not specified as traumatic (principal); Z98.890 Other specified postprocedural states
CPT/HCPCS: 97110; 97140; 97162

== ENCOUNTER 2022-12-27 08:33 | Outpatient (CLI) | payer MEDICARE, MEDICAID, SELFPAY ==
[2022-12-27 10:32] LABS: Alanine Aminotransferase 22 U/L (6-35); Albumin Level 4.8 g/dL (3.5-5.1); Alkaline Phosphatase 94 U/L (38-126); Anion Gap 11 mmol/L (8-16); Aspartate Amino Transferase 22 U/L (14-36); Bilirubin,Total 0.4 mg/dL (0.2-1.3); Blood Urea Nitrogen 14 mg/dL (7-17); Calcium 10.2 mg/dL (8.4-10.2); Carbon Dioxide 27 mmol/L (22-30); Chloride 103 mmol/L (98-107); Cholesterol 126 mg/dL (0-200); Estimated Glomerular Filt Rate 55; Glucose 104 mg/dL (65-110); HDL Direct 65 mg/dL; Potassium 4.1 mmol/L (3.4-5.0); Sodium 141 mmol/L (137-145); Triglycerides 62 mg/dL (<150)
[2022-12-27 10:40] LABS: LDL Cholesterol Direct 47 mg/dL
[2022-12-27 10:52] LABS: Vitamin D 25 Hydroxy 71.9 ng/mL
[2022-12-27 10:52] LABS: Creatinine Urine 22.3 mg/dL
[2022-12-27 10:59] LABS: MALB Creatinine Ratio < 26.9 mg/g (0-30); Microalbumin Urine Random < 6.0 mg/L (0-16.7)
[2022-12-27 11:58] LABS: Hemoglobin A1C 6.8 % (<5.7)
== END 2022-12-27 08:34 | disposition home or self-care (01) ==
LOC: ANHLAB 08:37
PROVIDERS: PCP Emergency Medicine; Visit Provider Emergency Medicine
DX: E11.42 Type 2 diabetes mellitus with diabetic polyneuropathy (principal); E55.9 Vitamin D deficiency, unspecified; E78.5 Hyperlipidemia, unspecified
CPT/HCPCS: 36415; 80053; 80061; 82043; 82306; 83036

== ENCOUNTER 2023-01-30 01:16 | Day surgery (SDC) | payer MEDICARE, MEDICAID, SELFPAY ==
[2023-01-29 12:33] VITALS: BMI 23.0
--- NOTE | 2023-01-29 12:37 | PC.NURSE ---
Report to the Outpatient Waiting Room, entrance under the green pavilion located off [facility], at time ____6am__ on date __01/30/23 . Planned Procedure Time: ___730 . Time changes happen often and if your time is changed the preop area will call you the afternoon before. - You and your visitor will be asked to self-screen and do not enter if you have any COVID symptoms. - A mask is optional within the hospital at this time. Patients may have clear liquids (water, carbonated beverages, clear teas, apple juice) until 3 hours prior to surgery with a maximum of 20 ounces. - No food from midnight until time of surgery. Take the following medications with a SIP of water the morning of surgery: nothing DO NOT STOP ANY OF YOUR OTHER PRESCRIPTION MEDICATIONS PRIOR TO SURGERY ?EXCEPT THE FOLLOWING Medications to discontinue per physician per patient Dr Brower had her stop cilostazol 1 week ago Date to take last dose 01/23/23 Please no make-up, nail zimbabwean, hairspray, perfume, deodorant, or body powder the day of surgery. No jewelry (including any body piercings) or valuables the day of surgery, leave them at home. Please take a shower or bath the night before, or the morning of, surgery with an antibacterial soap. Wear comfortable, loose fitting clothing. Children are encouraged to wear pajamas. - Jewelry must be removed prior to entering the operating room. Rings and piercings that are not removed may be cut off. - The hospital will not accept responsibility for valuables. - Please leave all valuables, including medications, at home the day of surgery. If you are going home after surgery, a licensed pile driver operator barge mounted must drive you home. - NO public transportation without another adult if you receive anesthesia. - We recommend that an adult stay with you for 24 hours following discharge. - We also recommend that you do not drive, make important decision, drink alcoholic beverages, or take any drugs that were not prescribed by your health care provider for at least 24 hours after your discharge time. For Pediatric surgeries, we recommend two adults accompany the child home. Follow any additional instructions given to you from your surgeon. If you or anyone in your household have experienced Covid symptoms in the past week, please notify your surgeon or the nurse liaison at the phone number below for possible testing. Telephone instructions given to patient and asked if any additional questions and then verbalized understanding. Patient advised to call surgeon office or pre surgery nurse liaison [phone] if any additional questions.
[2023-01-30] VITALS (21 sets, daily range): BP systolic 115–149; BP diastolic 70–97; PULSE 82–101; RESP 15–21; TEMP 36.1; O2SAT 90–99
[2023-01-30] MEDS: LACTATED RINGERS 1,000 ML 30 ML IV CONT ×2 (06:32→08:46)
--- NOTE | 2023-01-30 06:34 | WPDANESEPPF ---
Anes - Initial Pre Proc Eval Procedure: Operation Date: 01/30/23 07:30 Proposed Procedures p Right Rotator Cuff Repair - Eugene Brower MD Date/Time: 01/30/23 06:34 Surgeon: Eugene Brower MD Pre Op Diagnosis: right rotator cuff tear Patient Data Age: 62 Gender: F Height: 1.6 m Weight: 59 kg Allergies Allergy/AdvReac Type Severity Reaction Status Date / Time Sulfa (Sulfonamide Allergy Intermediate Swelling Verified 01/30/23 06:11 Antibiotics) Home Medications Medication Instructions Recorded Confirmed Type folic acid-vit B6-vit B12 2.2 1 tablet PO QAM 03/05/21 01/23/23 History mg-25 mg-1 mg tablet (Virt-Zoey) cyclobenzaprine 5 mg tablet See Rx Instructions .Route 07/28/22 01/23/23 Rx .COMPLEX #90 tabs blood sugar diagnostic (OneTouch #100 ea 08/08/22 01/23/23 Rx Ultra Test strips) solifenacin 10 mg tablet 10 mg PO DAILY 08/13/22 01/23/23 History losartan 50 mg-hydrochlorothiazide See Rx Instructions .Route 08/18/22 01/23/23 Rx 12.5 mg tablet .COMPLEX #90 tabs gabapentin 300 mg capsule See Rx Instructions .Route 08/22/22 01/23/23 Rx .COMPLEX #90 caps metformin 1,000 mg tablet See Rx Instructions .Route 09/05/22 01/23/23 Rx .COMPLEX #180 tabs atorvastatin 20 mg tablet (Lipitor) 20 mg PO DAILY #90 tabs 09/18/22 01/29/23 Rx cilostazol 50 mg tablet See Rx Instructions .Route 10/20/22 01/29/23 Rx .COMPLEX #180 tabs blood-glucose meter (OneTouch #1 ea 11/06/22 01/23/23 Rx Ultra2 Meter) bupropion HCl 75 mg tablet See Rx Instructions .Route 12/29/22 01/29/23 Rx .COMPLEX #90 tabs estradiol 0.01% (0.1 mg/gram) See Rx Instructions .Route 12/29/22 01/23/23 Rx vaginal cream .COMPLEX #42.5 grams benzoyl peroxide 5 % topical gel 1 applic topical DAILY #42.5 grams 01/13/23 01/29/23 Rx chlorhexidine gluconate 4 % 1 applic topical ONCE #237 mL 01/13/23 01/29/23 Rx topical liquid (Hibiclens) clindamycin phosphate 1 % topical 1 applic topical DAILY #30 grams 01/13/23 01/23/23 Rx gel Patient hx anesthesia problems: none Family hx anesthesia problems: none Results Review: All pre-operative results and documents have been reviewed as part of the pre-operative evaluation. [facility] Past Medical History Medical History Arthritis COPD (chronic obstructive pulmonary disease) Diabetes Diabetes mellitus Dysphagia Essential (primary) hypertension GERD (gastroesophageal reflux disease) Neuropathy Peripheral vascular disease Rotator cuff arthropathy of left shoulder Tubal (~1978) Vitiligo Vitiligo Surgical History Surgical History History of tubal ligation (~1991) Hx of removal of ovary (~1991) Family History Family History Father , 72 Heart problem Recurrent strokes Hypertension Mother , 62 History of kidney removal Lung abnormality Other Asthma Diabetes mellitus Heart disease Neuropathy Social History Social History Social History: Patient drinks caffeine daily. Smoking packs per day: 0.5 Smoking cigarettes per day: 10.0 Years smoked: 48 Smoking pack-years: 24.00 Smoking status: Former smoker Tobacco type: cigarettes Second hand tobacco smoke exposure: Yes Alcohol intake: never Drinks per week: 1 Alcohol use details: Drinks only at social events - about 2 per month Substance use: never Substance use type: does not use Lack of Transportation: No Lack of Food: Never True Current Housing: I Have Housing Concerned About Future Housing: No Difficulty Paying Gas/Electric Bills: No Difficulty Paying for Meds: YES Currently Unemployed: No Education: Associate Degree Difficulty w/ Childcare or Family Care: No Living arrangements: with family Additional living ar
[2023-01-30] MEDS: CELECOXIB 200 MG CAPSULE PO (06:35)
[2023-01-30] MEDS: ACETAMINOPHEN 500 MG TABLET 1000 MG PO (06:35)
[2023-01-30 06:42] LABS: Glucose Point of Care 130 mg/dl (65-105)
--- NOTE | 2023-01-30 07:08 | WPDHPUPDATE1 ---
History and Physical Update Update Date/Time: 01/30/23 07:08 History and Physical has been reviewed, including an updated exam of the patient. There are NO changes in the patient's condition. Risks, benefits, and alternatives have been discussed and questions answered. Patient agrees to proceed with procedure.
--- NOTE | 2023-01-30 07:27 | WPDANESPNB ---
Anes - Peripheral Nerve Block Date/Time: 01/30/23 07:27 I have discussed with the patient/family/POA the placement of a peripheral nerve block for post-operative pain management, including associated risks, benefits, complications, and side effects. Alternative methods of post-operative analgesia were detailed. Questions were solicited and answers provided to the satisfaction of the patient/family/POA. Time-Out: A pre-procedural Time-Out was completed immediately before starting the procedure and confirmed: Patient Identification, Site, Procedure, Patient Position and the Availability of Requisite Equipment. Clinical Indications: Acute post-operative pain management requested by the operative surgeon. Nerve Block Insertion Note Anes-nerve block: interscalene right Patient position: supine Needle: 22 gauge, stimulating, insulated echogenic needle. Needle length: 50 mm Technique: ultrasound Injectate: bupivacaine 0.5% with epi 5 mcg/ml (30 no epi) and dexamethasone (mg) (8) Observations: tolerated well Complications: none Procedure start time:: 719 Procedure end time:: 724
[2023-01-30] MEDS: ceFAZolin 2 GM/D5W 50 ML 2 GM/50 ML BAG IVPB (07:30)
--- NOTE | 2023-01-30 08:41 | W.PM.PROC2 ---
Procedure Note - Detailed Date of Procedure 01/30/23 Pre-op Diagnosis right rotator cuff tear Post-op Diagnosis Same Procedure Performed REPAIR RIGHT ROTATOR CUFF Surgeon Eugene Brower MD Anesthesia General Description of Procedure THE PATIENT WAS TAKEN TO THE OPERATING ROOM AND THEN INTUBATED AND PLACED IN THE BEACH CHAIR POSITION. THE RIGHT UPPER EXTREMITY WAS PREPPED AND DRAPED IN THE NORMAL STERILE FASHION. AN INCISION WAS MADE IN BETWEEN THE FELIX-LATERAL ACROMION AND THE AC JOINT. THE FASCIA WAS IDENTIFIED. NEXT A MINI OPEN INCISION WAS MADE THROUGH THE DELTOID MUSCLE EXPOSING THE SUBACROMIAL SPACE. A LIMITED ACROMIOPLASTY WAS PREFORMED. THE ROTATOR CUFF WAS IDENTIFIED. THERE WAS A NEAR FULL THICKNESS TEAR. IT MEASURED APPROXIMATELY 1CM X 1CM. THE GREATER TUBEROSITY WAS DEBRIDED TO BLEEDING BONE. 1 ARTHREX 4.75 SUTURE ANCHOR WAS PLACED IN TO GOOD BONE AND HAD VERY GOOD BITES. CHANEL[place] TYPE REPAIRS WERE DONE TO THE ROTATOR CUFF AND THERE WAS GOOD APPROXIMATION TO THE GREATER TUBEROSITY. THE REPAIR WAS EXCELLENT. THERE WAS NO IMPINGEMENT ON THE REPAIR FROM THE ACROMION WITH RANGE OF MOTION. THE WOUND WAS IRRIGATED WITH COPIOUS AMOUNTS OF ANTIBIOTIC SOLUTION. THE DELTOID MUSCLE WAS REPAIRED WITH #2 FIBER WIRE AND 0 VICRYL SUTURE. THE SUBCUTANEOUS LAYER WAS APPROXIMATED WITH 2-0 VICRYL. THE SKIN WAS APPROXIMATED WITH 3-0 QUIL AND DERMABOND. STERILE DRESSING WAS APPLIED. PATIENT WAS EXTUBATED. Estimated Blood Loss 20 Complications No immediate complications Condition Stable Disposition PACU
[2023-01-30 08:55] LABS: Glucose Point of Care 131 mg/dl (65-105)
== END 2023-01-30 13:56 | disposition home or self-care (01) ==
PROVIDERS: PCP Emergency Medicine; Visit Provider Orthopaedic Surgery
PROC: (CPT 23420; principal; 2023-01-30 07:30)
DX: S46.011A Strain of muscle(s) and tendon(s) of the rotator cuff of right shoulder, initial encounter (principal); X58.XXXA Exposure to other specified factors, initial encounter; G89.18 Other acute postprocedural pain; J44.9 Chronic obstructive pulmonary disease, unspecified; I10 Essential (primary) hypertension; K21.9 Gastro-esophageal reflux disease without esophagitis; E11.40 Type 2 diabetes mellitus with diabetic neuropathy, unspecified; E11.51 Type 2 diabetes mellitus with diabetic peripheral angiopathy without gangrene; Z79.84 Long term (current) use of oral hypoglycemic drugs; L80 Vitiligo; Z87.891 Personal history of nicotine dependence
CPT/HCPCS: 23410; 64415; 82948; A9270; C1713; J0690; J1100; J2250; J2405; J2704; J3010; J7120

== ENCOUNTER 2024-06-11 08:13 | Outpatient (CLI) | payer OTHER, MEDICARE, SELFPAY ==
[2024-06-11 09:18] LABS: Alanine Aminotransferase 31 U/L (6-35); Albumin Level 4.6 g/dL (3.5-5.1); Alkaline Phosphatase 83 U/L (38-126); Anion Gap 11 mmol/L (4-12); Aspartate Amino Transferase 28 U/L (14-36); Bilirubin,Total 0.4 mg/dL (0.2-1.3); Blood Urea Nitrogen 16 mg/dL (7-17); Calcium 9.3 mg/dL (8.4-10.2); Carbon Dioxide 26 mmol/L (22-30); Chloride 104 mmol/L (98-107); Cholesterol 105 mg/dL (0-200); Estimated Glomerular Filt Rate 54; Glucose 134 mg/dL (65-110); HDL Direct 55 mg/dL; Potassium 4.1 mmol/L (3.4-5.0); Sodium 141 mmol/L (137-145); Triglycerides 66 mg/dL (<150)
[2024-06-11 09:34] LABS: LDL Cholesterol Direct < 30 mg/dL
[2024-06-11 09:42] LABS: Vitamin D 25 Hydroxy 77.8 ng/mL
== END 2024-06-11 08:14 | disposition home or self-care (01) ==
PROVIDERS: PCP Emergency Medicine; Visit Provider Emergency Medicine
DX: E78.5 Hyperlipidemia, unspecified (principal); E55.9 Vitamin D deficiency, unspecified
CPT/HCPCS: 36415; 80053; 80061; 82306

== ENCOUNTER 2024-07-06 12:34 | Outpatient (CLI) | payer OTHER, MEDICARE, SELFPAY ==
--- OUTSIDE RECORDS SUMMARY | 2024-07-06 12:37 | XMS_ITS | Data Portability ---
[facility] Address [address] [place] [address] Care Team Providers Care Financial Reserve Clerk Name Role Phone CHARU LINCOLN Primary Care Provider Unavailable Eligibility Manager Assessment No assessment recorded. Plan of Treatment Reminders Order Date Submit Date Provider Last Modified By Organization Details Last Modified Time Details Appointments ANY 15 2024 10:15A M Unruly Epps MD Not available Not available Not available Lab None recorded. Referral None recorded. Procedures None recorded. Surgeries None recorded. Imaging None recorded. Medication Orders tamsulosi n 0.4 mg capsule 2024 025 [facility] [id number], [address], 06/24/2024 12:05:56 solifenac in 10 mg tablet 2023 024 [facility] [id number], [address], 08/19/2023 11:42:50 Patient TargetsNo targets recorded. Patient Instructions Encounter Date Encounter Id Patient Instructions Last Modified By Organization Details Last Modified Time 02/11/2023 [id number] frequent urination: care instructions Not available 02/11/2023 15:39:15 02/11/2023 [id number] presbyopia: care instructions msafi Not available 02/11/2023 16:03:10 type 2 diabetes: care instructions msafi Not available 02/11/2023 16:03:10 vitiligo: care instructions msafi Not available 02/11/2023 16:03:10 08/19/2023 [id number] frequent urination: care instructions Not available 08/19/2023 11:42:49 06/24/2024 [id number] frequent urination: care instructions Not available 06/24/2024 12:05:53 Reason for Referral None Reported. Problems Name Problem SNOMED Code Status Onset Date Resolution Date Notes Provider Name and Address Organization Details Recorded Time Candidias is of mouth 23086924 Active 2016 Not Available [facility] 1 05:22:42 Allergic rhinitis 76683110 Active 2016 Not Available [facility] 1 05:22:42 Increased frequency of urination 554375292 Active 2016 Not Available [facility] 1 05:22:42 Tobacco user 817603137 Active 2017 Not Available [facility] 1 05:22:42 Neuropath y 101707223 Active 2017 Not Available [facility] 1 05:22:42 Vitiligo 83192169 Active 2017 Not Available [facility] 1 05:22:42 Hyperkale sofya 83109630 Active 2017 Not Available [facility] 1 05:22:42 Fracture at wrist and/or hand level 489296940 Active 2017 Not Available [facility] 1 05:22:42 Osteoarth ritis of shoulder region 33485605 Active 2018 Not Available [facility] 1 05:22:42 Carpal tunnel syndrome 51280456 Active 2018 Not Available [facility] 1 05:22:42 Pain of wrist region 08515828 Active 2018 Not Available [facility] 1 05:22:42 Diabetic periphera l neuropath y 036061061 Active 2018 Not Available [facility] 1 05:22:42 Fibromyal jose c 613059427 Active 2018 Not Available [facility] 1 05:22:42 Headache 91956775 Active 2019 Not Available [facility] 05:22:42 Chronic obstructi ve pulmonary disease 91836910 Active 2019 Not Available [facility] 05:22:42 Pain in lower limb 49271221 Active 2020 Argelia Harris PA-C Attn: Accounting ,[address] [facility], [place], [address] , [facility] [place] 11:26:39 Diabetes mellitus 32085796 Active Not Available [facility] 05:22:42 Hyperlipi demia 60068071 Active Not Available [facility] 05:22:42 Essential hypertens ion 57220013 Active Not Available [facility] 05:22:42 Pain of shoulder region 66235459 Active Not Available [facility] 05:22:42 Postmenop ausal bleeding 26074353 Active Not Available [facility] 05:22:42 Abnormal uterine bleeding 119201325413 00 Active atrophy on 11/2014 Not Available [facility] 1 05:22:42 Mammograp hy abnormal 359701447 Active Not Available [facility] 05:22:42 Indigesti on 122059339 Active Not Available [facility] 05:22:42 Cystitis 29922001 Active Not Available [facility] 05:22:41 Problem Notes None recorded. Procedures Surgical History Date Name Laterality Status Provider Name and Address Organization Details Recorded Time 06/30/19 21 Bladder Ultrasound completed Unruly Epps MD [address] [place], [address], [place] [facility] 06/29/2020 11:09:54 05/01/19 21 Cerumen removal without microscope completed Elizabeth Cruz [place] 04/30/2020 10:33:14 03/07/19 21 Date of Last Pap Smear completed Ibeth Caro [place] - [facility] 03/14/2020 11:29:10 02/23/19 20 Date of Last Mammogram completed Criss Morris [place] 06/07/2020 14:05:36 12/02/19 15 Endometrial Biopsy completed Hope Lyons MD Attn: Accounting,[address] [facility], [place], [address], [place] 12/01/2014 10:33:49 03/06/18 92 Tubal Ligation completed Griselda Weiner LY- Attn: Accounting,[address] [facility], [place], [address], [place] [facility] 08/04/2014 10:51:39 08/07/18 79 Oophorectomy completed Hope Lyons MD Attn: Accounting,[address] [facility], [place], [address], [place] [facility] 11/16/2014 10:52:09 Imaging Results None recorded. Procedure Notes None recorded. Medical Equipment None Reported. Allergies Allergen ID Allergen Name Allergen Category Reaction Reaction Severity Criticality Documentation Date Start Date Code Code System Note Provider Name and Address Organization Details Recorded Time 3169 Substance with sulfonami de structure and antibacte rial mechanism of action (substanc e) medicatio n Not available Not available Not available 01/17/2014 [id number] SNOMED Geoff Naranjo, KIMBERLEYD Attn: Keely chapa,[address] [facility], [place], [address], [facility] 4 15:40:06 Medications Name Sig Start Date Stop Date Status Note LastModified by Organization Details LastModified Time levofloxa geetha 750 mg tabs 10/16 completed Not Available Not Available Not Available baclofen 20 mg tabs 06/23 completed Not Available Not Available Not Available verapamil hcl er 240 mg tbcr 04/05 completed Not Available Not Available Not Available omeprazol e 20 mg cpdr 02/25 completed Not Available Not Available Not Available duloxetin e hcl 30 mg cpep 02/25 completed Not Available Not Available Not Available nystatin 402250 unit/gm crea 05/28 completed Not Available Not Available Not Available ciproflox acin hydrochlo ride 500 mgtabs 10/08 completed Not Available Not Available Not Available phenazopy ridine hcl 100 mg tabs 04/05 completed Not Available Not Available Not Available metformin hcl 1000 mg tabs 05/28 completed Not Available Not Available Not Available diphenoxy late/atro pine 2.5-0.025 mg tabs 06/23 completed Not Available Not Available Not Available olopatadi ne hydrochlo ride 0.2 % soln 04/05 completed Not Available Not Available Not Available nitrofura ntoin macrocrys tals 50 mgcaps 04/05 completed Not Available Not Available Not Available gabapenti n 300 mg caps 06/23 completed Not Available Not Available Not Available clobetaso l propionat e 0.05 % oint 04/05 completed Not Available Not Available Not Available phenazopy ridine hcl 200 mg tabs 06/23 completed Not Available Not Available Not Available metformin hcl 500 mg tabs active Not Available Not Available Not Available azithromy geetha 250 mg tabs 06/23 completed Not Available Not Available Not Available tacrolimu s 0.1 % oint 04/05 completed Not Available Not Available Not Available glipizide 5 mg tabs active Not Available Not Available No t Available triamcino lone acetonide 0.1 % oint 07/03 completed Not Available Not Available Not Available symbicort 80-4.5 mcg/act aero active Not Available Not Available Not Available atorvasta tin calcium 10 mg tabs 06/23 completed Not Available Not Available Not Available oxybutyni n chloride 5 mg tabs 04/05 completed Not Available Not Available Not Available acetamino phen/code ine #3 300-30 mgtabs 02/25 completed Not Available Not Available Not Available atorvasta tin calcium 40 mg tabs 04/05 completed Not Available Not Available Not Available baclofen 10 mg tabs 04/05 completed Not Available Not Available Not Available methylpre dnisolone dose pack 4 mg tbpk 06/23 completed Not Available Not Available Not Available clotrimaz ole 10 mg lozg 05/28 completed Not Available Not Available Not Available ranitidin e hcl 150 mg tabs 02/25 completed Not Available Not Available Not Available cyclobenz aprine hcl 10 mg tabs 06/23 completed Not Available Not Available Not Available ciproflox acin hcl 500 mg tabs active Not Available Not Available Not Available nitrofura ntoin monohydra te/macroc rystals 100 mg caps 04/05 completed Not Available Not Available Not Available acetamino phen/code ine 300-30 mg tabs 05/28 completed Not Available Not Available Not Available atorvasta tin calcium 20 mg tabs 02/25 completed Not Available Not Available Not Available metformin hydrochlo ride 1000 mg tabs 04/05 completed Not Available Not Available Not Available cephalexi n 500 mg caps 04/05 completed Not Available Not Available Not Available phenazopy ridine hydrochlo ride 100 mg tabs 04/05 completed Not Available Not Available Not Available fluconazo le 150 mg tabs 04/05 completed Not Available Not Available Not Available naproxen sodium 550 mg tabs active Not Available Not Available Not Available diclofena c sodium dr 50 mg tbec 05/28 completed Not Available Not Available Not Available ibuprofen 600 mg tabs 04/05 completed Not Available Not Available Not Available tramadol hcl 50 mg tabs 06/23 completed Not Available Not Available Not Available neomycin/ polymyxin /dexameth asone 3.5-27425 -0.1 susp 04/05 completed Not Available Not Available Not Available nystatin 998429 unit/ml susp 05/28 completed Not Available Not Available Not Available fluticaso ne propionat e 50 mcg/act susp 06/23 completed Not Available Not Available Not Available cyclobenz aprine 10 mg tablet Take 1 tablet twice a day by oral route as needed for 30 days. 2021 active Not Available Not Available Not Avai lable amoxicill in 500 mg capsule 11/01 completed Not Available Not Available Not Available Miralax 17 gram/dose oral powder Take 17 g every day by oral route for 14 days. 02/25 completed Not Available Not Available Not Available atorvasta tin 40 mg tablet Take 1 tablet every day by oral route. 01/09 completed Not Available Not Available Not Available methocarb linnea 500 mg tablet TAKE 1 TABLET BY MOUTH EVERY 6 HOURS active Not Available Not Available No t Available clotrimaz ole 10 mg breezy Take 1 tablet 5 times a day by oral route for 14 days. 04/05 completed Not Available Not Available Not Available metformin 500 mg tablet TAKE TWO TABLETS BY MOUTH TWICE A DAY 09/13 completed Not Available Not Available Not Available atorvasta tin 80 mg tablet TAKE ONE-HALF TABLET BY MOUTH ONCE DAILY 11/01 completed Not Available Not Available Not Available nystatin 100,000 unit/mL oral suspensio n Take 5 mL 4 times a day by oral route for 14 days. 05/28 completed Not Available Not Available Not Available nitrofura ntoin macrocrys librado 50 mg capsule Take 1 capsule every 6 hours by oral route as directed for 3 days. 04/05 completed Not Available Not Available Not Available atorvasta tin 20 mg tablet TAKE 1 TABLET BY MOUTH EVERY DAY active Not Available Not Available No t Available atorvasta tin 10 mg tablet Take 1 tablet every day by oral route. 06/23 completed Not Available Not Available Not Available azithromy geetha 250 mg tablet TAKE 2 TABLETS (500 MG) BY ORAL ROUTE ONCE DAILY FOR 1 DAY THEN 1 TABLET (250 MG) BY ORAL ROUTE ONCE DAILY FOR 4 DAYS 06/09 completed Not Available Not Available Not Available cilostazo l 50 mg tablet TAKE 1 TABLET BY MOUTH TWICE DAILY active Not Available Not Available No t Available fluconazo le 150 mg tablet one tab po for vaginal yeast . 07/03 completed Not Available Not Available Not Available meloxicam 15 mg tablet TAKE 1 TABLET BY MOUTH EVERY DAY 01/02 completed Not Available Not Available Not Available Tubersol 5 tub. unit/0.1 mL intraderm al injection solution Inject 0.1 mL by intrader mal route. 01/02 completed Not Available Not Available Not Available Pyridium 200 mg tablet Take 1 tablet 3 times a day by oral route for 2 days. 07/23 completed Not Available Not Available Not Available Tylenol Arthritis Pain 650 mg tablet,ex tended release Take 2 tablets twice a day by oral route as needed. 01/02 completed Not Available Not Available Not Available Nexium 40 mg capsule,d elayed release Take 1 capsule every day by oral route. active dr. jurado Not Available Not Available Not Available topiramat e 25 mg tablet 01/02 completed Not Available Not Available Not Available acetamino phen 300 mg-codein e 30 mg tablet Take 1 tablet every 6 hours by oral route as needed. 01/31 completed Not Available Not Available Not Available ciproflox acin 500 mg tablet TAKE 1 TABLET BY MOUTH TWICE A DAY active Not Available Not Available No t Available tramadol 50 mg tablet TAKE 1 TABLET BY MOUTH EVERY 8 HOURS NEEDED active Not Available Not Available No t Available acetamino phen 500 mg tablet Take 2 tablets every 8 hours by oral route PRN. active Not Available Not Available No t Available triamcino lone acetonide 0.1 % topical cream 01/02 completed Not Available Not Available Not Available baclofen 20 mg tablet Take 1 tablet 3 times a day by oral route. 10/08 completed Not Available Not Available Not Available meloxicam 7.5 mg tablet Take 1 tablet every day by oral route. 05/01 completed Not Available Not Available Not Available oxycodone -acetamin ophen 5 mg-325 mg tablet TAKE 1 TABLET BY MOUTH EVERY 6 HOURS NEEDED FOR PAIN active Not Available Not Available No t Available amitripty line 25 mg tablet Take 1 tablet every day by oral route HS. 06/15 completed Not Available Not Available Not Available clindamyc in 1 % topical gel APPLY TO OPERATIV E SHOULDER DAILY FOR 2 WEEKS PRIOR TO SURGERY. active Not Available Not Available No t Available tamsulosi n 0.4 mg capsule Take 1 capsule every day by oral route at noon for 30 days. 2024 active Not Available Not Available Not Avai lable OneTouch Ultra Test strips TEST 3 TIMES A DAY active Not Available Not Available No t Available amitripty line 10 mg tablet 08/29 completed Not Available Not Available Not Available meclizine 25 mg tablet TAKE 1 TABLET BY MOUTH EVERY 8 HOURS NEEDED 02/19 completed Not Available Not Available Not Available phenazopy ridine 100 mg tablet Take 1 tablet twice a day by oral route as directed for 5 days. 04/30 completed Not Available Not Available Not Available baclofen 10 mg tablet Take 1 tablet 3 times a day by oral route. 06/09 completed Not Available Not Available Not Available cephalexi n 500 mg capsule 04/05 completed Not Available Not Available Not Available pantopraz ole 40 mg tablet,de layed release TAKE 1 TABLET BY MOUTH EVERY DAY active Not Available Not Available No t Available tacrolimu s 0.1 % topical ointment 01/02 completed Not Available Not Available Not Available metformin 1,000 mg tablet TAKE 1 TABLET BY MOUTH TWICE A DAY active Not Available Not Available No t Available neomycin- polymyxin -dexameth 3.5 mg/mL-10, 000 unit/mL-0 .1% eye drops 04/05 completed Not Available Not Available Not Available triamcino lone acetonide 0.1 % topical ointment 11/01 completed Not Available Not Available Not Available ranitidin e 150 mg tablet TAKE ONE TABLET BY MOUTH TWICE A DAY 02/25 completed Not Available Not Available Not Available Robaxin-7 50 750 mg tablet Take 1 tablet 3 times a day by oral route as needed. 07/23 completed Not Available Not Available Not Available bupropion HCl 75 mg tablet TAKE 1 TABLET BY MOUTH EVERY DAY active Not Available Not Available No t Available diclofena c potassium 50 mg tablet one tab bid active Not Available Not Available No t Available gabapenti n 300 mg capsule TAKE 1 CAPSULE BY MOUTH DAILY AT BEDTIME active Not Available Not Available No t Available omeprazol e 20 mg capsule,d elayed release TAKE ONE CAPSULE BY MOUTH ONCE DAILY 07/23 completed Not Available Not Available Not Available verapamil ER (SR) 240 mg tablet,ex tended release TAKE ONE TABLET BY MOUTH ONCE DAILY 06/26 completed Not Available Not Available Not Available hydrochlo rothiazid e 25 mg tablet Take 1 tablet every day by oral route. 09/28 completed patient self disconti nued Not Available Not Available Not Available diclofena c sodium 50 mg tablet,de layed release TAKE 1 TABLET BY MOUTH TWICE A DAY active Not Available Not Available No t Available clobetaso l 0.05 % topical ointment 06/06 completed Not Available Not Available Not Available ibuprofen 600 mg tablet 01/31 completed Not Available Not Available Not Available oxycodone -acetamin ophen 7.5 mg-325 mg tablet TAKE 1 TABLET BY MOUTH EVERY 6 HOURS NEEDED FOR PAIN active Not Available Not Available No t Available estradiol 0.01% (0.1 mg/gram) vaginal cream INSERT 1 GRAM VAGINALL Y TWICE WEEKLY active Not Available Not Available No t Available methylpre dnisolone 4 mg tablets in a dose pack Take 1 dose pk by oral route as directed . 06/29 completed Not Available Not Available Not Available albuterol sulfate HFA 90 mcg/actua tion aerosol inhaler INHALE 2 PUFFS INTO THE LUNGS EVERY 4 HOURS NEEDED FOR 30 DAYS active Not Available Not Available No t Available losartan 50 mg-hydroc hlorothia zide 12.5 mg tablet TAKE 1 TABLET BY MOUTH EVERY DAY active Not Available Not Available No t Available ketorolac 60 mg/2 mL intramusc ular solution Inject 2 mL by intramus cular route as directed . 04/05 completed Not Available Not Available Not Available oxybutyni n chloride 5 mg tablet TAKE ONE TABLET BY MOUTH TWICE A DAY DIRECTED 01/02 completed Not Available Not Available Not Available betametha sone dipropion ate 0.05 % topical ointment 06/06 completed Not Available Not Available Not Available fluticaso ne propionat e 50 mcg/actua tion nasal spray,conrad pension Crawford 4 sprays every day by intranas al route. 04/05 completed Not Available Not Available Not Available clotrimaz ole 1 % topical cream APPLY TO THE AFFECTED AND SURROUND ING AREAS OF SKIN BY TOPICAL ROUTE 2 TIMES PER DAY IN THE MORNING AND EVENING 06/06 completed Not Available Not Available Not Available atenolol 50 mg tablet Take 1 tablet every day by oral route HS. 06/15 completed Not Available Not Available Not Available loratadin e 10 mg tablet Take 1 tablet every day by oral route. 04/05 completed Not Available Not Available Not Available glipizide 5 mg tablet TAKE 2 TABLETS BY MOUTH EVERY MORNING AND 1 TABLET BEFORE DINNER. 2014 active medicati on refill by ab rma Not Available Not Available Not Available mometason e 0.1 % topical cream APPLY A THIN LAYER TO THE AFFECTED AREA(S) BY TOPICAL ROUTE ONCE DAILY 02/19 completed Not Available Not Available Not Available acarbose 25 mg tablet Take 1 tablet 3 times a day by oral route. 06/15 completed Not Available Not Available Not Available bisacodyl 5 mg tablet Take 1 tablet every day by oral route PRN. active Not Available Not Available No t Available cyclobenz aprine 5 mg tablet TAKE 1 TABLET BY MOUTH TWICE A DAY NEEDED FOR MUSCLE SPASM active Not Available Not Available No t Available nitrofura ntoin monohydra te/macroc rystals 100 mg capsule TAKE 1 CAPSULE BY MOUTH TWICE A DAY FOR 7 DAYS MUST ADMINIST ER WITH A MEAL/BLAKE D active Not Available Not Available No t Available duloxetin e 30 mg capsule,d elayed release TAKE ONE CAPSULE BY MOUTH ONCE DAILY 02/25 completed Not Available Not Available Not Available capsaicin 0.1 % topical cream Apply 1 applicat ion by topical route for 30 days. 06/06 completed Not Available Not Available Not Available solifenac in 5 mg tablet TAKE 1 TABLET (5 MG TOTAL) BY MOUTH DAILY. active Not Available Not Available No t Available solifenac in 10 mg tablet TAKE 1 TABLET BY MOUTH EVERY DAY DIRECTED active Not Available Not Available No t Available metformin 2013 active Not Available Not Available Not Avai lable FaBB 2.2 mg-25 mg-1 mg tablet TAKE 1 TABLET BY MOUTH EVERY DAY FOR 30 DAYS active Not Available Not Available No t Available sitaglipt in phosphate 100 mg tablet Take 1 tablet every day by oral route. 2012 active Not Available Not Available Not Avai lable olopatadi ne 0.2 % eye drops INSTILL 1 DROP INTO AFFECTED EYE(S) BY OPHTHALM IC ROUTE ONCE DAILY 07/03 completed Not Available Not Available Not Available Voltaren 1 % topical gel APPLY 2 GRAMS TO THE AFFECTED AREA(S) BY TOPICAL ROUTE 4 TIMES PER DAY 01/02 completed Not Available Not Available Not Available Probiotic 10 billion cell capsule Take 1 capsule every day by oral route as directed . 10/16 completed Not Available Not Available Not Available Myrbetriq 25 mg tablet,ex tended release Take 1 tablet every day by oral route as directed for 30 days. 01/02 completed Not Available Not Available Not Available Myrbetriq 50 mg tablet,ex tended release TAKE 1 TABLET BY MOUTH EVERY DAY DIRECTED active Not Available Not Available No t Available clindamyc in 1 % topical gel, once daily APPLY TOPICALL Y AND WASH THE SURGICAL EXTREMIT Y DAILY FOR 2 WEEKS LEADING UP TO SURGERY active Not Available Not Available No t Available EC-Naprox en 500 mg tablet,de layed release active Not Available Not Available Not Available OneTouch Ultra2 Meter DIRECTED active Not Available Not Available No t Available Vitals Date Recorded Body height Provider Name an d Address Organization Details Last Updated DateTime 02/11/2023 160.02 cm Kelly Junior MA [facility] 02/12/20 23 14:41:31 Date Recorded Heart rate Body mass index (BMI) Body weight Body temperature Pain severity - 0-10 verbal numeric rating [Score] - Reported Systolic blood pressure Diastolic blood pressure Provider Name and Address Organization Details Last Updated DateTime 3 115 /min 24.6 kg/m2 04954.3 4 g 96.4 [degF] 0 106 mm[Hg] 72 mm[Hg] Caridad Storm MA [facility] 3 15:01:43 Date Recorded Body height Body mass index (BMI) Body weight Heart rate Body temperature Systolic blood pressure Diastolic blood pressure Provider Name and Address Organization Details Last Updated DateTime 3 160.02 cm 24.6 kg/m2 15946.3 4 g 115 /min 96.4 [degF] 106 mm[Hg] 72 mm[Hg] Carol Harley MA [facility] 3 15:08:13 Date Recorded Body height Body mass index (BMI) Body weight Heart rate Body temperature Pain severity - 0-10 verbal numeric rating [Score] - Reported Systolic blood pressure Diastolic blood pressure Provider Name and Address Organization Details Last Updated DateTime 4 160.02 cm 23.6 kg/m2 94651.2 2 g 119 /min 98.3 [degF] 0 130 mm[Hg] 72 mm[Hg] Madhav Ruelas MA [facility] 4 11:24:02 Date Recorded Body height Body mass index (BMI) Body weight Heart rate Pain severity - 0-10 verbal numeric rating [Score] - Reported Systolic blood pressure Diastolic blood pressure Provider Name and Address Organization Details Last Updated DateTime 4 160.02 cm 23.4 kg/m2 69066.1 9 g 114 /min 0 117 mm[Hg] 68 mm[Hg] Angie CasperTEE amn [facility] 4 12:26:00 Date Recorded Body height Body mass index (BMI) Body weight Heart rate Body temperature Pain severity - 0-10 verbal numeric rating [Score] - Reported Systolic blood pressure Diastolic blood pressure Provider Name and Address Organization Details Last Updated DateTime 5 160.02 cm 24.4 kg/m2 76443.3 1 g 108 /min 97 [degF] 0 142 mm[Hg] 79 mm[Hg] Antoniosri Ruelas MA [facility] 5 11:31:34 Social History Question Answer Notes LastModified by Organizat ion Details LastModified Time Tobacco Smoking Status Former Smoker 6-7/day Meaghan guevara, [facility] 07/15/2022 10:08:24 Do You Have An Advance Directive? No Information not available 05/24/2020 Are You Blind Or Do You Have Difficulty Seeing? No Information not available 05/24/2020 What Is Your Level Of Caffeine Consumption? Heavy Information not available 06/07/2020 In The 14 Days Before Symptom Onset, Have You Had Close Contact With A Laboratory-confir med COVID-19 While That Case Was Ill? No Information not available 06/07/2020 In The 14 Days Before Symptom Onset, Have You Had Close Contact With A Person Who Is Under Investigation For COVID-19 While That Person Was Ill? No Information not available 06/07/2020 Have You Been To An Area Known To Be High Risk For COVID-19? No Information not available 05/24/2020 Are You Deaf Or Do You Have Serious Difficulty Hearing? [id number]||2024-07-06 00:00:00|DEXA_ITS|BURKT|Imaging|[id number]|" Bone Density Report Name: ADELAIDA LESLIE Age: 63 Sex: Female Ethnicity: White Date of : 1960 Indication: postmenopausal; screening for osteoporosis; height loss; Referring Provider: CHARU LINCOLN Study: Bone densitometry was performed. Exam Date: July 06, 2024 Accession number: [id number] Bone Density: Region BMD T-score Z-score Classification AP Spine(L1-L4) 0.941 -1.0 0.8 Normal Femoral Neck (Left) 0.784 -0.6 1.0 Normal Total Hip (Left) 1.035 0.8 2.0 Normal Femoral Neck (Right) 0.799 -0.4 1.1 Normal Total Hip (Right) 0.991 0.4 1.7 Normal Total Hip Mean 1.013 0.6 1.9 Normal World Health Organization criteria for BMD impression classify patients as: Normal (T-score at or above -1.0), Osteopenia (T-score between -1.0 and -2.5), or Osteoporosis (T-score at or below -2.5). 10-year Fracture Risk: FRAX not reported because: All T-scores for Spine Total, Hip Total, Femoral Neck at or above -1.0 Clinical Information Provided by Patient: Has used the following medications: Vitamin D Patient maximum height was 65 Menopause Age: 48 No regular weight bearing exercise Drinks caffeinated beverages Onset of menses at age 13 Number of children 6 Impression: The patient has normal bone mass. Discussion: BONE DENSITY IS ABOVE THE MINIMUM DESIRABLE LEVEL AT ALL SKELETAL SITES TESTED. This patient’s bone mineral density is above the minimum desirable level (T-score -1.0 or better) at all sites measured. The patient should follow a healthful lifestyle (good nutrition with adequate calcium and vitamin D, and appropriate weight-bearing exercise). Follow-Up: Consider repeating this study in 5 years or sooner if there is some new clinical indication. Reported by: KASANDRA on 07/06/2024 2:27:00 PM. Reviewed, dictated and finalized at location A. "
== END 2024-07-06 12:35 | disposition home or self-care (01) ==
LOC: ANHIMG 12:34
PROVIDERS: PCP Emergency Medicine; Visit Provider Emergency Medicine
DX: Z78.0 Asymptomatic menopausal state (principal); E55.9 Vitamin D deficiency, unspecified
CPT/HCPCS: 77080

== ENCOUNTER 2024-12-06 11:45 | Outpatient (CLI) | payer OTHER, MEDICARE, SELFPAY ==
--- NOTE | ~2024-12-06 | MM_ITS ---
EXAMINATION: MM screening markos BI w nishi HISTORY: Screening TECHNIQUE: Craniocaudal and mediolateral oblique 3-D tomosynthesis images were obtained and synthetic 2-D images were generated. CAD analysis was submitted and interpreted. COMPARISON: No prior mammogram is available for comparison at this institution. BREAST PARENCHYMAL COMPOSITION: There are scattered areas of fibroglandular density. FINDINGS: There is no evidence of suspicious calcification, or architectural distortion to suggest malignancy. Mass in the upper-outer quadrant of the right breast, middle depth. IMPRESSION: 1. Mass in the upper-outer quadrant of the right breast, middle depth. The study is incomplete. A diagnostic mammogram and a diagnostic ultrasound are recommended. 2. No evidence of malignancy. BI-RADS 0: Incomplete-Need additional imaging evaluation. Reviewed, dictated and finalized at location Q. IMPRESSION: 1. Mass in the upper-outer quadrant of the right breast, middle depth. The stud y is incomplete. A diagnostic mammogram and a diagnostic ultrasound are recomme nded. 2. No evidence of malignancy. BI-RADS 0: Incomplete-Need additional imaging evaluation.
== END 2024-12-06 11:46 | disposition home or self-care (01) ==
LOC: ANHFOHIMG 11:48
PROVIDERS: PCP Emergency Medicine; Visit Provider Emergency Medicine
DX: Z12.31 Encounter for screening mammogram for malignant neoplasm of breast (principal); R92.8 Other abnormal and inconclusive findings on diagnostic imaging of breast
CPT/HCPCS: 77063; 77067

== ENCOUNTER 2025-01-27 10:15 | Outpatient (CLI) | payer OTHER, MEDICARE, SELFPAY ==
--- NOTE | ~2025-01-27 | MM_ITS ---
EXAMINATION: MM diagnostic markos RT w nishi HISTORY: Additional imaging TECHNIQUE: Craniocaudal and mediolateral oblique 3-D tomosynthesis images were obtained and synthetic 2-D images were generated. CAD analysis was submitted and interpreted. COMPARISON: December 06 BREAST PARENCHYMAL COMPOSITION: Not Dense: There are scattered areas of fibroglandular FINDINGS: Small circumscribed structure question is seen to contain a fatty notch, and this is consistent with an intramammary lymph node. No suspicious masses are seen. There are no suspicious calcifications. No unexplained architectural distortion is seen. There are no skin or nipple abnormalities identified. There is no adenopathy seen on the images submitted. IMPRESSION: No mammographic evidence to suggest malignancy is seen. The patient may return to screening mammography as per ACR guidelines. BI-RADS 2 - Benign. Reviewed, dictated and finalized at location B. [employer]
== END 2025-01-27 10:16 | disposition home or self-care (01) ==
LOC: ANHFOHIMG 10:16
PROVIDERS: PCP Emergency Medicine; Visit Provider Emergency Medicine
DX: N63.10 Unspecified lump in the right breast, unspecified quadrant (principal)
CPT/HCPCS: 77061; 77065; G0279